=== PATIENT | female | born 1945 | race Caucasian/White ===

== ENCOUNTER 2017-09-02 06:48 | Inpatient (IN) | payer MEDICARE, BC ==
[2017-09-02] MEDS ORDERED: Naloxone 0.4 MG/ML SDV IVPUSH ONE ×4 (07:09→10:07)
--- NOTE | 2017-09-02 07:30 | EDM.PDOC ---
ED HPI GENERAL MEDICAL PROBLEM - General Chief Complaint: Behavioral/Psych Stated Complaint: TOO MUCH TO DRINK WITH MEDS Time Seen by Provider: 09/02/17 07:26 Source of Information: Reports: Patient History Limitations: Reports: No Limitations - History of Present Illness INITIAL COMMENTS - FREE TEXT/NARRATIVE: pt arrived very obtunded. She has been very depressed and she has taken some xanax and hydrocodone. A drug screen will be done. She is very sleepy. Onset: Today Duration: Hour(s): Location: Reports: Head, Chest Associated Symptoms: Reports: No Other Symptoms - Related Data Allergies Allergy/AdvReac Type Severity Reaction Status Date / Time Iodinated Contrast- Oral and Allergy Itching Verified 09/02/17 06:59 IV Dye [Iodinated Contrast Media - IV Dye] naproxen [From Aleve] Allergy Itching Verified 09/02/17 06:59 Penicillins Allergy Swelling Verified 09/02/17 06:59 Sulfa (Sulfonamide Allergy Itching Verified 09/02/17 06:59 Antibiotics) Home Meds: Home Meds ALPRAZolam [Alprazolam] 0.5 mg PO BID PRN 10/23/14 [History] Aspirin [Halfprin] 81 mg PO DAILY 10/23/14 [History] Calcium Carbonate/Vitamin D3 [Calcium 500 + Vit D 200 Caplet] 1 tab PO BID 10/23 [History] Cholecalciferol (Vitamin D3) [Vitamin D3] 1,000 units PO DAILY 10/23/14 [History ] Docusate Calcium 240 mg PO DAILY 10/23/14 [History] Famotidine [Pepcid] 20 mg PO DAILY 10/23/14 [History] Fenofibrate [Lofibra] 160 mg PO DAILY 10/23/14 [History] Hydrocodone/Acetaminophen [[place] 10-325] 1 tab PO TID PRN 10/23/14 [History] Magnesium Gluconate [Magonate] 27 mg PO DAILY 10/23/14 [History] Multivitamin with Minerals [Multiple Vitamin] 1 tab PO DAILY 10/23/14 [History] Ondansetron [Zofran] 4 mg PO Q6H PRN 10/23/14 [History] Pravastatin [Pravachol] 40 mg PO BEDTIME 10/23/14 [History] Sotalol [Betapace, Sorine] 80 mg PO BID 10/23/14 [History] Zolpidem Tartrate 10 mg PO BEDTIME PRN 10/23/14 [History] Levocetirizine Dihydrochloride [Xyzal] 5 mg PO DAILY 10/19/16 [History] Lidocaine HCl [Aspercreme] 1 applic TP TID PRN 12/21/16 [History] Albuterol [Ventolin HFA] 2 puff INH Q4H PRN 02/01/17 [History] Cyclobenzaprine [Flexeril] 10 mg PO TID PRN 04/26/17 [History] diphenhydrAMINE [Benadryl] 25 mg PO Q4H PRN 05/10/17 [History] ED ROS GENERAL - Review of Systems Review Of Systems: See Below Constitutional: Reports: No Symptoms HEENT: Reports: No Symptoms Respiratory: Reports: No Symptoms Cardiovascular: Reports: No Symptoms Endocrine: Reports: No Symptoms GI/Abdominal: Reports: No Symptoms : Reports: No Symptoms Musculoskeletal: Reports: No Symptoms Skin: Reports: No Symptoms Neurological: Reports: Other (pt is very obtunded) Hematologic/Lymphatic: Reports: No Symptoms - Physical Exam Exam: See Below Text/Narrative:: pt is very obtunded but is arousable and she does try to answer questions. She has been given another does of narcan and she is a little more arousable. Exam Limited By: No Limitations General Appearance: Alert, Other ( She is arousable but falls right back to asleep. Pupils are equal and reactive. ) Ears: Normal TMs Nose: Normal Inspection Throat/Mouth: Normal Inspection Head Exam: Atraumatic Neck: Normal Inspection Respiratory/Chest: No Respiratory Distress Cardiovascular: Regular Rate, Rhythm, Tachycardia GI/Abdominal: Soft (Female) Exam: Deferred Rectal (Female) Exam: Deferred Neuro Exam (Abbreviated): Alert, Oriented, Normal Cognition Back Exam: Normal Inspection Extremities: Normal Inspection Psychiatric: Anxious Course - Vital Signs Last Recorded V/S: Last Vital Signs Temp 36.9 C 09/02/17 07:40 Pulse 76 09/02/17 07:40 Resp 18 09/02/17 07:40 BP 194/88 H 09/02/17 07:40 Pulse Ox 100 09/02/17 07:40 - Orders/Labs/Meds Orders: Active Orders 24 hr Category Date Time Status EKG Documentation Completion [RC] ASDIRECTED Care 09/02/17 06:53 Active Mehta Catheter Insertion [Insert Urinary Catheter] [OM. Care 09/02/17 07:45 Ordered PC] Q24H Urinary Catheter Assessment [RC] ASDIRECTED Care 09/02/17 07:32 Active CULTURE URINE [RM] Stat Lab 09/02/17 08:11 Received DRUG SCREEN, URINE [URCHEM] Stat Lab 09/02/17 07:36 Ordered UA W/MICROSCOPIC [URIN] Urgent Lab 09/02/17 07:36 Ordered Levofloxacin/Dextrose 5%-Water [Levaquin in D5W 500 MG/ Med 09/02/17 08:14 Active 100 ML] 500 mg Premix Bag 1 bag IV ONETIME EKG 12 Lead [EK] Routine Ther 09/02/17 06:53 Ordered Medication Orders Levofloxacin/Dextrose 500 mg/ (Premix) 100 mls @ 100 mls/hr IV ONETIME ONE Stop: 09/02/17 09:13 Labs: Laboratory Tests 09/02/17 09/02/17 09/02/17 Range/Units 06:53 06:53 07:00 WBC 8.9 (4.5-11.0) K/uL RBC 4.06 (3.30-5.50) M/uL Hgb 13.8 (12.0-15.0) g/dL Hct 42.2 (36.0-48.0) % MCV 104 H (80-98) fL MCH 34 H (27-31) pg MCHC 33 (32-36) % Plt Count 195 (150-400) K/uL Neut % (Auto) 74 H (36-66) % Lymph % (Auto) 20 L (24-44) % [place] % (Auto) 5 (2-6) % Eos % (Auto) 1 L (2-4) % Baso % (Auto) 0 (0-1) % Sodium 136 L (140-148) mmol/L Potassium 4.1 (3.6-5.2) mmol/L Chloride 99 L (100-108) mmol/L Carbon Dioxide 28 (21-32) mmol/L Anion Gap 13.1 (5.0-14.0) mmol/L BUN 15 (7-18) mg/dL Creatinine 0.9 (0.6-1.0) mg/dL Est Cr Clr Drug Dosing 44.03 mL/min Estimated GFR (MDRD) > 60 (>60) Glucose 130 H (74-106) mg/dL Calcium 9.4 (8.5-10.1) mg/dL Total Bilirubin 0.5 (0.2-1.0) mg/dL AST 25 (15-37) U/L ALT 24 (12-78) U/L Alkaline Phosphatase 51 (46-116) U/L Total Protein 7.6 (6.4-8.2) g/dL Albumin 4.0 (3.4-5.0) g/dL Globulin 3.6 H (2.3-3.5) g/dL Albumin/Globulin Ratio 1.1 L (1.2-2.2) Urine Color Urine Appearance Urine pH (4.5-8.0) Ur Specific [place] (1.008-1.030) Urine Protein (NEGATIVE) mg/dL Urine Glucose (UA) (NEGATIVE) mg/dL Urine Ketones (NEGATIVE) mg/dL Urine Occult Blood (NEGATIVE) Urine Nitrite (NEGATIVE) Urine Bilirubin (NEGATIVE) Urine Urobilinogen (NORMAL) mg/dL Ur Leukocyte Esterase (NEGATIVE) Urine RBC (0-5) Urine WBC (0-5) Ur Epithelial Cells Amorphous Sediment Urine Bacteria Urine Mucus Salicylates 6.3 (2.0-20.0) mg/dL Urine Opiates Screen (NEGATIVE) Ur Oxycodone Screen (NEGATIVE) Urine Methadone Screen (NEGATIVE) Ur Propoxyphene Screen (NEGATIVE) Acetaminophen 0.4 L (10.0-30.0) ug/mL Ur Barbiturates Screen (NEGATIVE) Ur Tricyclics Screen (NEGATIVE) Ur Phencyclidine Scrn (NEGATIVE) Ur Amphetamine Screen (NEGATIVE) U Methamphetamines Scrn (NEGATIVE) Urine MDMA Screen (NEGATIVE) U Benzodiazepines Scrn (NEGATIVE) U Cocaine Metab Screen (NEGATIVE) U Marijuana (THC) Screen (NEGATIVE) 09/02/17 09/02/17 Range/Units 07:36 07:36 WBC (4.5-11.0) K/uL RBC (3.30-5.50) M/uL Hgb (12.0-15.0) g/dL Hct (36.0-48.0) % MCV (80-98) fL MCH (27-31) pg MCHC (32-36) % Plt Count (150-400) K/uL Neut % (Auto) (36-66) % Lymph % (Auto) (24-44) % [place] % (Auto) (2-6) % Eos % (Auto) (2-4) % Baso % (Auto) (0-1) % Sodium (140-148) mmol/L Potassium (3.6-5.2) mmol/L Chloride (100-108) mmol/L Carbon Dioxide (21-32) mmol/L Anion Gap (5.0-14.0) mmol/L BUN (7-18) mg/dL Creatinine (0.6-1.0) mg/dL Est Cr Clr Drug Dosing mL/min Estimated GFR (MDRD) (>60) Glucose (74-106) mg/dL Calcium (8.5-10.1) mg/dL Total Bilirubin (0.2-1.0) mg/dL AST (15-37) U/L ALT (12-78) U/L Alkaline Phosphatase (46-116) U/L Total Protein (6.4-8.2) g/dL Albumin (3.4-5.0) g/dL Globulin (2.3-3.5) g/dL Albumin/Globulin Ratio (1.2-2.2) Urine Color Yellow Urine Appearance Cloudy Urine pH 6.5 (4.5-8.0) Ur Specific [place] 1.005 L (1.008-1.030) Urine Protein Negative (NEGATIVE) mg/dL Urine Glucose (UA) Normal (NEGATIVE) mg/dL Urine Ketones Negative (NEGATIVE) mg/dL Urine Occult Blood Moderate (NEGATIVE) Urine Nitrite Positive H (NEGATIVE) Urine Bilirubin Negative (NEGATIVE) Urine Urobilinogen Normal (NORMAL) mg/dL Ur Leukocyte Esterase Large (NEGATIVE) Urine RBC 0-5 (0-5) Urine WBC 20-30 H (0-5) Ur Epithelial Cells Not seen Amorphous Sediment Not seen Urine Bacteria Many Urine Mucus Not seen Salicylates (2.0-20.0) mg/dL Urine Opiates Screen Presumptive positive H (NEGATIVE) Ur Oxycodone Screen Presumptive positive H (NEGATIVE) Urine Methadone Screen Negative (NEGATIVE) Ur Propoxyphene Screen Negative (NEGATIVE) Acetaminophen (10.0-30.0) ug/mL Ur Barbiturates Screen Negative (NEGATIVE) Ur Tricyclics Screen Negative (NEGATIVE) Ur Phencyclidine Scrn Negative (NEGATIVE) Ur Amphetamine Screen Negative (NEGATIVE) U Methamphetamines Scrn Negative (NEGATIVE) Urine MDMA Screen Negative (NEGATIVE) U Benzodiazepines Scrn Presumptive positive H (NEGATIVE) U Cocaine Metab Screen Negative (NEGATIVE) U Marijuana (THC) Screen Negative (NEGATIVE) Meds: Medications Generic Name Dose Route Start Last Admin Trade Name Freq PRN Reason Stop Dose Admin Levofloxacin/Dextrose 500 mg/ 100 mls @ 100 mls/hr 09/02/17 08:14 Premix IV 09/02/17 09:13 ONETIME ONE Discontinued Medications Generic Name Dose Route Start Last Admin Trade Name Freq PRN Reason Stop Dose Admin Naloxone HCl 0.4 mg 09/02/17 07:09 09/02/17 07:14 Narcan IVPUSH 09/02/17 07:10 0.4 mg ONETIME ONE Administration Naloxone HCl 0.1 mg 09/02/17 07:24 09/02/17 07:34 Narcan IVPUSH 09/02/17 07:25 0.1 mg ONETIME ONE Administration - Re-Assessments/Exams Free Text/Narrative Re-Assessment/Exam: 09/02/17 08:13 pt is positive for opiates and benzediapines. . She is more arousable after the next dose of narcan. Departure - Departure Time of Disposition: 08:24 Disposition: Home, Self-Care 01 Condition: Fair Clinical Impression: Overdose of analgesic, Depression - Discharge Information Referrals: PCP,None [Primary Care Provider] - Forms: ED Department Discharge Care Plan Goals: admit to Dr Monzon - My Orders Last 24 Hours: My Active Orders 09/02/17 07:32 Urinary Catheter Assessment [RC] ASDIRECTED 09/02/17 07:36 DRUG SCREEN, URINE [URCHEM] Stat UA W/MICROSCOPIC [URIN] Urgent 09/02/17 07:45 Mehta Catheter Insertion [Insert Urinary Catheter] [OM.PC] Q24H 09/02/17 08:11 CULTURE URINE [RM] Stat 09/02/17 08:14 Levofloxacin/Dextrose 5%-Water [Levaquin in D5W 500 MG/100 ML] 500 mg Premix Bag 1 bag IV ONETIME - Assessment/Plan Last 24 Hours: My Active Orders 09/02/17 07:32 Urinary Catheter Assessment [RC] ASDIRECTED 09/02/17 07:36 DRUG SCREEN, URINE [URCHEM] Stat UA W/MICROSCOPIC [URIN] Urgent 09/02/17 07:45 Mehta Catheter Insertion [Insert Urinary Catheter] [OM.PC] Q24H 09/02/17 08:11 CULTURE URINE [RM] Stat 09/02/17 08:14 Levofloxacin/Dextrose 5%-Water [Levaquin in D5W 500 MG/100 ML] 500 mg Premix Bag 1 bag IV ONETIME
[2017-09-02 07:31] LABS: ACETAMINOPHEN 0.4 ug/mL (10.0-30.0)
[2017-09-02] MEDS ORDERED: Levofloxacin/Dextrose 5%-Water 500 MG in Premix Bag 1 BAG IV ONE (08:14)
--- NOTE | 2017-09-02 08:59 | PCM.HP ---
H&P History of Present Illness - General Date of Service: 09/02/17 Admit Problem/Dx: Admission Diagnosis/Problem Admission Diagnosis/Problem Drug overdose Source of Information: Provider, RN Notes Reviewed History Limitations: Reports: Altered Mental Status (Decreased level of consciousness secondary to drug overdose) - History of Present Illness Initial Comments - Free Text/Narative: Ms. Alvarado is a 72-year-old woman who is admitted through the emergency department following a polydrug overdose and apparent suicide attempt. By history she is been depressed and has left some notes indicating that she was considering suicide. She was found this morning slumped at the table unresponsive with pill bottles by her. Estimated that she had taken hydrocodone as well as alprazolam, amounts unknown. In the emergency department she has received Narcan and has been more alert and interactive, able to protect her airway. She currently is being started on a continuous infusion of Narcan. Evaluation is also shown evidence of underlying urinary tract infection, urine culture has been obtained. Initial acetaminophen level is low, follow-up level has been ordered. Because of her decreased level of responsiveness she's unable to answer specific questions concerning recent symptoms or review of systems. - Related Data Allergies/Adverse Reactions: Allergies Allergy/AdvReac Type Severity Reaction Status Date / Time Iodinated Contrast- Oral and Allergy Itching Verified 09/02/17 06:59 IV Dye [Iodinated Contrast Media - IV Dye] naproxen [From Aleve] Allergy Itching Verified 09/02/17 06:59 Penicillins Allergy Swelling Verified 09/02/17 06:59 Sulfa (Sulfonamide Allergy Itching Verified 09/02/17 06:59 Antibiotics) Home Medications: Home Meds ALPRAZolam [Alprazolam] 0.5 mg PO BID PRN 10/23/14 [History] Aspirin [Halfprin] 81 mg PO DAILY 10/23/14 [History] Calcium Carbonate/Vitamin D3 [Calcium 500 + Vit D 200 Caplet] 1 tab PO BID 10/23 [History] Cholecalciferol (Vitamin D3) [Vitamin D3] 1,000 units PO DAILY 10/23/14 [History ] Docusate Calcium 240 mg PO DAILY 10/23/14 [History] Famotidine [Pepcid] 20 mg PO DAILY 10/23/14 [History] Fenofibrate [Lofibra] 160 mg PO DAILY 10/23/14 [History] Hydrocodone/Acetaminophen [[place] 10-325] 1 tab PO TID PRN 10/23/14 [History] Magnesium Gluconate [Magonate] 27 mg PO DAILY 10/23/14 [History] Multivitamin with Minerals [Multiple Vitamin] 1 tab PO DAILY 10/23/14 [History] Ondansetron [Zofran] 4 mg PO Q6H PRN 10/23/14 [History] Pravastatin [Pravachol] 40 mg PO BEDTIME 10/23/14 [History] Sotalol [Betapace, Sorine] 80 mg PO BID 10/23/14 [History] Zolpidem Tartrate 10 mg PO BEDTIME PRN 10/23/14 [History] Levocetirizine Dihydrochloride [Xyzal] 5 mg PO DAILY 10/19/16 [History] Lidocaine HCl [Aspercreme] 1 applic TP TID PRN 12/21/16 [History] Albuterol [Ventolin HFA] 2 puff INH Q4H PRN 02/01/17 [History] Cyclobenzaprine [Flexeril] 10 mg PO TID PRN 04/26/17 [History] diphenhydrAMINE [Benadryl] 25 mg PO Q4H PRN 05/10/17 [History] Past Medical History HEENT History: Reports: Impaired Vision Cardiovascular History: Reports: Arrhythmia, High Cholesterol, Hypertension Gastrointestinal History: Reports: Other (See Below) Other Gastrointestinal History: mesh removal Musculoskeletal History: Reports: Other (See Below) Other Musculoskeletal History: post polio syndrome Psychiatric History: Reports: Anxiety, Depression, Suicide Attempt - Past Surgical History GI Surgical History: Reports: Hernia, Abdominal H&P Review of Systems - Review of Systems: Review Of Systems: Unable To Obtain General: Reports: ROS unobtainable (Patient is sedated secondary to drug overdose) Exam - Exam Exam: See Below - Vital Signs Vital Signs: Last Vital Signs Temp 98.4 F 09/02/17 07:40 Pulse 76 09/02/17 07:40 Resp 18 09/02/17 07:40 BP 194/88 H 09/02/17 07:40 Pulse Ox 100 09/02/17 07:40 Weight: 180 lb - Exam Quality Assessment: Supplemental Oxygen, Urinary Catheter, DVT Prophylaxis General: Sedated, Lethargic HEENT: Conjunctiva Clear, Mucosa Moist & [place], Normal Nasal Septum, Posterior Pharynx Clear, Pupils Equal Neck: Supple, Trachea Midline, +2 Carotid Pulse wo Bruit Lungs: Clear to Auscultation, Normal Respiratory Effort Cardiovascular: Regular Rate, Regular Rhythm, Normal S1, Normal S2. No: Systolic Murmur, Diastolic Murmur GI/Abdominal Exam: Soft, Non-Tender, No Organomegaly, No Distention Extremities: Non-Tender, No Pedal Edema Skin: Warm, Dry, Intact Psychiatric: Depressed, Suicidal Ideation - Patient Data Lab Results Last 24 hrs: Laboratory Results - last 24 hr 09/02/17 09/02/17 09/02/17 Range/Units 06:53 06:53 07:00 WBC 8.9 (4.5-11.0) K/uL RBC 4.06 (3.30-5.50) M/uL Hgb 13.8 (12.0-15.0) g/dL Hct 42.2 (36.0-48.0) % MCV 104 H (80-98) fL MCH 34 H (27-31) pg MCHC 33 (32-36) % Plt Count 195 (150-400) K/uL Neut % (Auto) 74 H (36-66) % Lymph % (Auto) 20 L (24-44) % [place] % (Auto) 5 (2-6) % Eos % (Auto) 1 L (2-4) % Baso % (Auto) 0 (0-1) % Sodium 136 L (140-148) mmol/L Potassium 4.1 (3.6-5.2) mmol/L Chloride 99 L (100-108) mmol/L Carbon Dioxide 28 (21-32) mmol/L Anion Gap 13.1 (5.0-14.0) mmol/L BUN 15 (7-18) mg/dL Creatinine 0.9 (0.6-1.0) mg/dL Est Cr Clr Drug Dosing 44.03 mL/min Estimated GFR (MDRD) > 60 (>60) Glucose 130 H (74-106) mg/dL Calcium 9.4 (8.5-10.1) mg/dL Total Bilirubin 0.5 (0.2-1.0) mg/dL AST 25 (15-37) U/L ALT 24 (12-78) U/L Alkaline Phosphatase 51 (46-116) U/L Total Protein 7.6 (6.4-8.2) g/dL Albumin 4.0 (3.4-5.0) g/dL Globulin 3.6 H (2.3-3.5) g/dL Albumin/Globulin Ratio 1.1 L (1.2-2.2) Urine Color Urine Appearance Urine pH (4.5-8.0) Ur Specific [place] (1.008-1.030) Urine Protein (NEGATIVE) mg/dL Urine Glucose (UA) (NEGATIVE) mg/dL Urine Ketones (NEGATIVE) mg/dL Urine Occult Blood (NEGATIVE) Urine Nitrite (NEGATIVE) Urine Bilirubin (NEGATIVE) Urine Urobilinogen (NORMAL) mg/dL Ur Leukocyte Esterase (NEGATIVE) Urine RBC (0-5) Urine WBC (0-5) Ur Epithelial Cells Amorphous Sediment Urine Bacteria Urine Mucus Salicylates 6.3 (2.0-20.0) mg/dL Urine Opiates Screen (NEGATIVE) Ur Oxycodone Screen (NEGATIVE) Urine Methadone Screen (NEGATIVE) Ur Propoxyphene Screen (NEGATIVE) Acetaminophen 0.4 L (10.0-30.0) ug/mL Ur Barbiturates Screen (NEGATIVE) Ur Tricyclics Screen (NEGATIVE) Ur Phencyclidine Scrn (NEGATIVE) Ur Amphetamine Screen (NEGATIVE) U Methamphetamines Scrn (NEGATIVE) Urine MDMA Screen (NEGATIVE) U Benzodiazepines Scrn (NEGATIVE) U Cocaine Metab Screen (NEGATIVE) U Marijuana (THC) Screen (NEGATIVE) 09/02/17 09/02/17 Range/Units 07:36 07:36 WBC (4.5-11.0) K/uL RBC (3.30-5.50) M/uL Hgb (12.0-15.0) g/dL Hct (36.0-48.0) % MCV (80-98) fL MCH (27-31) pg MCHC (32-36) % Plt Count (150-400) K/uL Neut % (Auto) (36-66) % Lymph % (Auto) (24-44) % [place] % (Auto) (2-6) % Eos % (Auto) (2-4) % Baso % (Auto) (0-1) % Sodium (140-148) mmol/L Potassium (3.6-5.2) mmol/L Chloride (100-108) mmol/L Carbon Dioxide (21-32) mmol/L Anion Gap (5.0-14.0) mmol/L BUN (7-18) mg/dL Creatinine (0.6-1.0) mg/dL Est Cr Clr Drug Dosing mL/min Estimated GFR (MDRD) (>60) Glucose (74-106) mg/dL Calcium (8.5-10.1) mg/dL Total Bilirubin (0.2-1.0) mg/dL AST (15-37) U/L ALT (12-78) U/L Alkaline Phosphatase (46-116) U/L Total Protein (6.4-8.2) g/dL Albumin (3.4-5.0) g/dL Globulin (2.3-3.5) g/dL Albumin/Globulin Ratio (1.2-2.2) Urine Color Yellow Urine Appearance Cloudy Urine pH 6.5 (4.5-8.0) Ur Specific [place] 1.005 L (1.008-1.030) Urine Protein Negative (NEGATIVE) mg/dL Urine Glucose (UA) Normal (NEGATIVE) mg/dL Urine Ketones Negative (NEGATIVE) mg/dL Urine Occult Blood Moderate (NEGATIVE) Urine Nitrite Positive H (NEGATIVE) Urine Bilirubin Negative (NEGATIVE) Urine Urobilinogen Normal (NORMAL) mg/dL Ur Leukocyte Esterase Large (NEGATIVE) Urine RBC 0-5 (0-5) Urine WBC 20-30 H (0-5) Ur Epithelial Cells Not seen Amorphous Sediment Not seen Urine Bacteria Many Urine Mucus Not seen Salicylates (2.0-20.0) mg/dL Urine Opiates Screen Presumptive positive H (NEGATIVE) Ur Oxycodone Screen Presumptive positive H (NEGATIVE) Urine Methadone Screen Negative (NEGATIVE) Ur Propoxyphene Screen Negative (NEGATIVE) Acetaminophen (10.0-30.0) ug/mL Ur Barbiturates Screen Negative (NEGATIVE) Ur Tricyclics Screen Negative (NEGATIVE) Ur Phencyclidine Scrn Negative (NEGATIVE) Ur Amphetamine Screen Negative (NEGATIVE) U Methamphetamines Scrn Negative (NEGATIVE) Urine MDMA Screen Negative (NEGATIVE) U Benzodiazepines Scrn Presumptive positive H (NEGATIVE) U Cocaine Metab Screen Negative (NEGATIVE) U Marijuana (THC) Screen Negative (NEGATIVE) Result Diagrams: 09/02/17 07:00 09/02/17 06:53 *Q Meaningful Use (ADM) - VTE Risk Assess *Q Each Risk Factor Represents 1 Point: Obesity ( BMI > 25 kg/m2) Total Score 1 Point Risk Factors: 1 Each Risk Factor Represents 2 Points: Age 60 - 74 Years Total Score 2 Point Risk Factors: 2 Each Risk Factor Represents 3 Points: None Total Score 3 Point Risk Factors: 0 Each Risk Factor Represents 5 Points: None Total Score 5 Point Risk Factors: 0 Venous Thromboembolism Risk Factor Score *Q: 3 Problem List Initiated/Reviewed/Updated: Yes Orders Last 24hrs: Active Orders 24 hr Category Date Time Status Patient Status Manage Transfer [TRANSFER] Routine ADT 09/02/17 08:39 Active EKG Documentation Completion [RC] ASDIRECTED Care 09/02/17 06:53 Active Mehta Catheter Insertion [Insert Urinary Catheter] [OM. Care 09/02/17 07:45 Ordered PC] Q24H Urinary Catheter Assessment [RC] ASDIRECTED Care 09/02/17 07:32 Active CULTURE URINE [RM] Stat Lab 09/02/17 08:11 Received DRUG SCREEN, URINE [URCHEM] Stat Lab 09/02/17 07:36 Ordered UA W/MICROSCOPIC [URIN] Urgent Lab 09/02/17 07:36 Ordered Levofloxacin/Dextrose 5%-Water [Levaquin in D5W 500 MG/ Med 09/02/17 08:14 Active 100 ML] 500 mg Premix Bag 1 bag IV ONETIME Naloxone [Narcan] 2 mg Med 09/02/17 09:00 Active Sodium Chloride 0.9% [Normal Saline] 495 ml IV ASDIRECTED Resuscitation Status Routine Resus Stat 09/02/17 08:43 Ordered EKG 12 Lead [EK] Routine Ther 09/02/17 06:53 Ordered Medication Orders Levofloxacin/Dextrose 500 mg/ (Premix) 100 mls @ 100 mls/hr IV ONETIME ONE Stop: 09/02/17 09:13 Last Admin: 09/02/17 08:40 Dose: 100 mls/hr Naloxone HCl 2 mg/ Sodium (Chloride) 500 mls @ 51.02 mls/hr IV ASDIRECTED [facility]; Protocol Assessment/Plan Comment:: ASSESSMENT AND PLAN DRUG OVERDOSE WITH APPARENT SUICIDE ATTEMPT-she is unable to provide specific information concerning recent symptoms or intent. Apparently notes were found that indicated she was considering suicide and report is that she is been fairly depressed recently. She apparently has taken hydrocodone with Tylenol and alprazolam in apparent suicide attempt, amounts unknown. -Continuous infusion of naloxone -ICU admission -72 hour hold -Inpatient psychiatric evaluation when she is medically stable -IV fluids for hydration URINARY TRACT INFECTION-normal white blood cell count, urinalysis shows evidence of infection -Urine culture pending -Rocephin 1 g IV every 24 hours MAINTENANCE ISSUES -DVT prophylaxis; Lovenox 40 mg subcutaneous daily -GI prophylaxis; Protonix 40 mg IV every 24 hours -Mehta catheter; currently place to monitor urine output, will be removed when she has recovered from overdose -Nutrition; nothing by mouth -Nicotine dependence; not required CODE STATUS-FULL CODE ADMISSION STATUS-patient will be admitted to inpatient status, expect at least a 2 night hospital stay for evaluation and management of problems as outlined above. At the time of this admission I do not reasonably expected evaluation and management of this problem will require more than a 96 hour hospital stay. DISPOSITION-anticipate discharge to home after the hospital stay. PRIMARY CARE PROVIDER-
[2017-09-02] MEDS ORDERED: Magnesium Hydroxide 400 MG/5 ML Susp 30 ML Cup PO PRN (09:57)
[2017-09-02] MEDS ORDERED: Albuterol 0.083% 2.5 MG/3 ML Neb Soln NEB PRN (09:57)
[2017-09-02] MEDS ORDERED: Sodium Chloride 0.9% 10 ML Syringe FLUSH PRN (09:57)
[2017-09-02] MEDS ORDERED: Polyethylene Glycol 3350 Powder 17 GM Packet PO PRN (09:57)
[2017-09-02] MEDS ORDERED: Ondansetron 4 MG/2 ML SDV IV PRN (09:57)
[2017-09-02] MEDS ORDERED: cefTRIAXone 1 GM in Sodium Chloride 0.9% 50 ML IV SCH (10:00)
[2017-09-02] MEDS ORDERED: Pantoprazole 40 MG Vial IVPUSH SCH (10:00)
[2017-09-02] MEDS: Enoxaparin 40 MG/0.4 ML Syringe SUBCUT SCH (10:12)
[2017-09-02] MEDS ORDERED: Propofol 200 MG/20 ML SDV ONE (10:31)
[2017-09-02] MEDS: Sodium Chloride 0.9% 1,000 ML IV SCH ×2 (10:53→18:23)
--- NOTE | 2017-09-02 11:20 | PCM.SN ---
- Free Text/Narrative Note: Ms. Alvarado showed decreased level of responsiveness after transfer to the intensive care unit, [place] Coma Scale had been 10 in the emergency department. This dropped to 6 after transfer to the intensive care unit despite continuous infusion of Narcan and further Narcan bolus. Family reports that she also had been drinking heavily over the past few days. Because of the drop in [place] Coma Scale and unresponsiveness, she has been intubated for airway protection and respiratory support. Anticipate that we should be able to proceed with extubation later today or tomorrow morning when the sedating effects of medication overdose and alcohol have improved.
--- NOTE | 2017-09-02 11:45 | ANES ---
DATE OF SERVICE: 09/02/2017 I was called in for an emergency intubation related to a patient who had OD'd and was unable to maintain her airway. The patient was at increase for aspiration also. When I got to the bedside, at approximately 10:15, the patient was unconscious, on a Narcan drip and was not responsive, responsive to painful stimuli only. Brief rundown with the nurses on why the patient was admitted, for a drug overdose. The patient sats were fine and were 100%. Vital signs were stable. Ambu bag was ready. Intubation tray was at the bedside. I induced with 70 mg of propofol and was able to intubate with a [place] 2. Grade 1 view was noted. Cords were cleared. Cricoid pressure was held during intubation. Positive end-tidal CO2 changes were noted. Bilateral breath sounds were decreased, but noted. No gurgling or air noise over the stomach. The patient maintained 100% sats throughout the intubation. Vital signs remained stable. The ET tube was secured at 22 at the lip, per RT. The patient was then placed on a ventilator per Respiratory Therapy, and will be managed per Dr. Monzon. Cristofer Smiley CRNA /[id number]
[2017-09-02] MEDS: Pravastatin 20 MG Tab PO SCH (21:46)
[2017-09-02] MEDS: Sotalol 80 MG Tab PO SCH (21:46)
[2017-09-03] MEDS: Sodium Chloride 0.9% 1,000 ML IV SCH (02:31)
[2017-09-03] MEDS ORDERED: ALPRAZolam 0.5 MG Tab PO PRN (08:42)
[2017-09-03] MEDS ORDERED: Nicotine Polacrilex 2 MG Gum CHEW PRN (08:53)
--- NOTE | 2017-09-03 08:53 | PCM.PN ---
- General Info Date of Service: 09/03/17 Subjective Update: Ms. Alvarado has improved medically since admission yesterday, she is conversant this morning although continues to report symptoms of depression and suicidal ideation. Vital signs have remained stable and she has been afebrile. She was extubated last night when she became more alert and interactive. No evidence of respiratory compromise. She is now medically stable and ready for discharge to psychiatric facility. - Review of Systems General: Reports: No Symptoms Pulmonary: Reports: No Symptoms Cardiovascular: Reports: No Symptoms Gastrointestinal: Reports: No Symptoms Psychiatric: Reports: Depression, Suicidal Ideation - Patient Data Vitals - Most Recent: Last Vital Signs Temp 98.6 F 09/02/17 20:00 Pulse 83 09/02/17 16:00 Resp 24 H 09/03/17 06:00 BP 159/53 H 09/03/17 06:00 Pulse Ox 90 L 09/03/17 06:00 Weight - Most Recent: 165 lb 1.6 oz I&O - Last 24 Hours: Intake & Output 09/02/17 09/03/17 09/03/17 22:59 06:59 14:59 Intake Total 2176 1859 Output Total 1200 2650 Balance 976 -791 Lab Results Last 24 Hours: Laboratory Results - last 24 hr 09/02/17 09/02/17 09/03/17 Range/Units 11:07 15:22 04:36 WBC 8.6 (4.5-11.0) K/uL RBC 3.77 (3.30-5.50) M/uL Hgb 12.9 (12.0-15.0) g/dL Hct 39.4 (36.0-48.0) % MCV 105 H (80-98) fL MCH 34 H (27-31) pg MCHC 33 (32-36) % Plt Count 176 (150-400) K/uL Neut % (Auto) 69 H (36-66) % Lymph % (Auto) 20 L (24-44) % [place] % (Auto) 10 H (2-6) % Eos % (Auto) 1 L (2-4) % Baso % (Auto) 0 (0-1) % Puncture Site Lt radial ABG pH 7.392 (7.350-7.450) ABG pCO2 40.2 (35.0-42.0) mmHg ABG pO2 67.9 L (75.0-100.0) mmHg ABG HCO3 23.9 (22.0-26.0) mmol/L ABG Total CO2 21.4 (21.0-25.0) mmol/L ABG O2 Saturation 92.5 L (95.0-98.0) % ABG O2 Content 16.7 (15.0-23.0) %vol ABG Base Excess -0.4 mm/L ABG Hemoglobin 13.2 (12.0-16.0) g/dL ABG Oxyhemoglobin 89.9 % ABG Carboxyhemoglobin 2.1 H (0.0-1.6) % ABG Methemoglobin 0.7 % Gage Test Pass O2 Delivery Device Ventilator Oxygen Flow Rate L Sodium (140-148) mmol/L Potassium (3.6-5.2) mmol/L Chloride (100-108) mmol/L Carbon Dioxide (21-32) mmol/L Anion Gap (5.0-14.0) mmol/L BUN (7-18) mg/dL Creatinine (0.6-1.0) mg/dL Est Cr Clr Drug Dosing mL/min Estimated GFR (MDRD) (>60) Glucose (74-106) mg/dL Calcium (8.5-10.1) mg/dL Magnesium (1.8-2.4) mg/dL Total Bilirubin (0.2-1.0) mg/dL AST (15-37) U/L ALT (12-78) U/L Alkaline Phosphatase (46-116) U/L Total Protein (6.4-8.2) g/dL Albumin (3.4-5.0) g/dL Globulin (2.3-3.5) g/dL Albumin/Globulin Ratio (1.2-2.2) Acetaminophen 0.0 L (10.0-30.0) ug/mL 09/03/17 Range/Units 04:36 WBC (4.5-11.0) K/uL RBC (3.30-5.50) M/uL Hgb (12.0-15.0) g/dL Hct (36.0-48.0) % MCV (80-98) fL MCH (27-31) pg MCHC (32-36) % Plt Count (150-400) K/uL Neut % (Auto) (36-66) % Lymph % (Auto) (24-44) % [place] % (Auto) (2-6) % Eos % (Auto) (2-4) % Baso % (Auto) (0-1) % Puncture Site ABG pH (7.350-7.450) ABG pCO2 (35.0-42.0) mmHg ABG pO2 (75.0-100.0) mmHg ABG HCO3 (22.0-26.0) mmol/L ABG Total CO2 (21.0-25.0) mmol/L ABG O2 Saturation (95.0-98.0) % ABG O2 Content (15.0-23.0) %vol ABG Base Excess mm/L ABG Hemoglobin (12.0-16.0) g/dL ABG Oxyhemoglobin % ABG Carboxyhemoglobin (0.0-1.6) % ABG Methemoglobin % Gage Test O2 Delivery Device Oxygen Flow Rate L Sodium 142 (140-148) mmol/L Potassium 3.3 L (3.6-5.2) mmol/L Chloride 107 (100-108) mmol/L Carbon Dioxide 24 (21-32) mmol/L Anion Gap 14.3 H (5.0-14.0) mmol/L BUN 10 (7-18) mg/dL Creatinine 0.8 (0.6-1.0) mg/dL Est Cr Clr Drug Dosing 51.81 mL/min Estimated GFR (MDRD) > 60 (>60) Glucose 101 (74-106) mg/dL Calcium 8.7 (8.5-10.1) mg/dL Magnesium 1.5 L (1.8-2.4) mg/dL Total Bilirubin 0.4 (0.2-1.0) mg/dL AST 27 (15-37) U/L ALT 24 (12-78) U/L Alkaline Phosphatase 44 L (46-116) U/L Total Protein 6.5 (6.4-8.2) g/dL Albumin 3.2 L (3.4-5.0) g/dL Globulin 3.3 (2.3-3.5) g/dL Albumin/Globulin Ratio 1.0 L (1.2-2.2) Acetaminophen (10.0-30.0) ug/mL Carlos Results Last 24 Hours: Microbiology 09/02/17 08:11 Urine Culture - Preliminary Urine, Bladder Med Orders - Current: Current Medications Albuterol (Proventil Neb Soln) 2.5 mg NEB Q4H PRN PRN Reason: Shortness Of Breath/wheezing Last Admin: 09/02/17 10:58 Dose: 2.5 mg Alprazolam (Xanax) 0.5 mg PO BID PRN PRN Reason: Anxiety Aspirin (Halfprin) 81 mg PO DAILY [facility] Cefdinir (Omnicef) 300 mg PO BID [facility] Enoxaparin Sodium (Lovenox) 40 mg SUBCUT DAILY [facility] Last Admin: 09/02/17 10:12 Dose: 40 mg Escitalopram Oxalate (Lexapro) 10 mg PO DAILY [facility] Famotidine (Pepcid) 20 mg PO DAILY [facility] Fluticasone Propionate (Flonase) 0 gm NASBOTH DAILY [facility] Magnesium Sulfate 2 gm/ Premix 50 mls @ 25 mls/hr IV Q6H [facility] Stop: 09/03/17 10:59 Magnesium Hydroxide (Milk Of Magnesia) 30 ml PO Q12H PRN PRN Reason: Constipation Magnesium Oxide (Magnesium Oxide) 400 mg PO BID [facility] Non-Formulary Medication (Fenofibrate [Lofibra]) 160 mg PO DAILY [facility] Ondansetron HCl (Zofran) 4 mg IV Q4H PRN PRN Reason: Nausea/Vomiting Polyethylene Glycol (Miralax) 17 gm PO DAILY PRN PRN Reason: Constipation Potassium Chloride (Klor-Con M20) 40 meq PO ONETIME ONE Stop: 09/03/17 09:01 Pravastatin Sodium (Pravachol) 40 mg PO BEDTIME [facility] Last Admin: 09/02/17 21:46 Dose: Not Given Senna/Docusate Sodium (Senna Plus) 1 tab PO BID PRN PRN Reason: Constipation Sodium Chloride (Saline Flush) 10 ml FLUSH ASDIRECTED PRN PRN Reason: Keep Vein Open Sotalol HCl (Betapace) 80 mg PO BID [facility] Last Admin: 09/02/17 21:46 Dose: Not Given Discontinued Medications Levofloxacin/Dextrose 500 mg/ (Premix) 100 mls @ 100 mls/hr IV ONETIME ONE Stop: 09/02/17 09:13 Last Admin: 09/02/17 08:40 Dose: 100 mls/hr Naloxone HCl 2 mg/ Sodium (Chloride) 500 mls @ 51.02 mls/hr IV ASDIRECTED [facility]; Protocol Last Admin: 09/02/17 19:57 Dose: 51.02 mls/hr Ceftriaxone Sodium 1 gm/ (Sodium Chloride) 50 mls @ 100 mls/hr IV Q24H [facility] Last Admin: 09/02/17 10:33 Dose: 100 mls/hr Sodium Chloride (Normal Saline) 1,000 mls @ 125 mls/hr IV ASDIRECTED [facility] Last Admin: 09/03/17 02:31 Dose: 125 mls/hr Naloxone HCl (Narcan) 0.4 mg IVPUSH ONETIME ONE Stop: 09/02/17 07:10 Last Admin: 09/02/17 07:14 Dose: 0.4 mg Naloxone HCl (Narcan) 0.1 mg IVPUSH ONETIME ONE Stop: 09/02/17 07:25 Last Admin: 09/02/17 07:34 Dose: 0.1 mg Naloxone HCl (Narcan) 0.4 mg IVPUSH ONETIME ONE Stop: 09/02/17 08:32 Last Admin: 09/02/17 08:40 Dose: 0.4 mg Naloxone HCl (Narcan) 0.4 mg IVPUSH ONETIME ONE Stop: 09/02/17 10:08 Last Admin: 09/02/17 10:34 Dose: 0.4 mg Pantoprazole Sodium (Protonix Iv) 40 mg IVPUSH Q24H [facility] Last Admin: 09/02/17 10:30 Dose: 40 mg Propofol (Diprivan 20 Ml) Confirm Administered Dose 200 mg .ROUTE .STK-MED ONE Stop: 09/02/17 10:32 - Exam Quality Assessment: DVT Prophylaxis. No: Urine Catheter General: Alert, Oriented, No Acute Distress Lungs: Clear to Auscultation, Normal Respiratory Effort Cardiovascular: Regular Rate, Regular Rhythm, No Murmurs GI/Abdominal Exam: Soft, Non-Tender, No Organomegaly, No Distention Extremities: Non-Tender, No Pedal Edema Skin: Warm, Dry, Intact Psy/Mental Status: Depressed, Suicidal Ideation - Problem List Review Problem List Initiated/Reviewed/Updated: Yes - My Orders Last 24 Hours: My Active Orders 09/02/17 08:43 Resuscitation Status Routine 09/02/17 09:57 Patient Status [ADT] Routine Cardiac Monitoring [RC] Q6H Height and Weight [RC] DAILY Intake and Output [RC] QSHIFT Notify Provider Vital Signs [RC] ASDIRECTED Oxygen Therapy [RC] Q12H Peripheral IV Care [RC] . DIRECTED RT Aerosol Therapy [RC] ASDIRECTED Up With Assistance [RC] ASDIRECTED VTE/DVT Education [RC] Per Unit Routine Vital Signs [RC] Q4H Albuterol [Proventil Neb Soln] 2.5 mg NEB Q4H PRN Docusate Sodium/Sennosides [Senna Plus] 1 tab PO BID PRN Enoxaparin [Lovenox] 40 mg SUBCUT DAILY Magnesium Hydroxide [Milk of Magnesia] 30 ml PO Q12H PRN Ondansetron [Zofran] 4 mg IV Q4H PRN Polyethylene Glycol 3350 [MiraLAX] 17 gm PO DAILY PRN Sodium Chloride 0.9% [Saline Flush] 10 ml FLUSH ASDIRECTED PRN Peripheral IV Insertion Adult [OM.PC] Routine Suicide Precautions [OM.PC] Q109/02/17 10:12 Restraint Initiate Non-VIOL/Non-SD [OM.PC] Stat Suicide Precautions [OM.PC] Q109/02/17 10:27 Suicide Precautions [OM.PC] Q109/02/17 10:40 Chest 1V Frontal [CR] Stat 09/02/17 10:42 Suicide Precautions [OM.PC] Q1M 09/02/17 10:57 Suicide Precautions [OM.PC] Q109/02/17 11:12 Suicide Precautions [OM.PC] Q109/02/17 11:27 Suicide Precautions [OM.PC] Q109/02/17 11:42 Suicide Precautions [OM.PC] Q1M 09/02/17 11:57 Suicide Precautions [OM.PC] Q109/02/17 12:12 Suicide Precautions [OM.PC] Q109/02/17 12:27 Suicide Precautions [OM.PC] Q15M 09/02/17 12:42 Suicide Precautions [OM.PC] Q15M 09/02/17 12:57 Suicide Precautions [OM.PC] Q109/02/17 13:12 Suicide Precautions [OM.PC] Q15M 09/02/17 13:27 Suicide Precautions [OM.PC] Q15M 09/02/17 13:42 Suicide Precautions [OM.PC] Q15M 09/02/17 13:57 Suicide Precautions [OM.PC] Q15M 09/02/17 14:12 Suicide Precautions [OM.PC] Q15M 09/02/17 14:27 Suicide Precautions [OM.PC] Q15M 09/02/17 14:42 Suicide Precautions [OM.PC] Q15M 09/02/17 14:57 Suicide Precautions [OM.PC] Q15M 09/02/17 15:12 Suicide Precautions [OM.PC] Q15M 09/02/17 15:27 Suicide Precautions [OM.PC] Q15M 09/02/17 15:42 Suicide Precautions [OM.PC] Q15M 09/02/17 15:57 Suicide Precautions [OM.PC] Q15M 09/02/17 16:12 Suicide Precautions [OM.PC] Q15M 09/02/17 16:27 Suicide Precautions [OM.PC] Q15M 09/02/17 16:42 Suicide Precautions [OM.PC] Q15M 09/02/17 16:57 Suicide Precautions [OM.PC] Q15M 09/02/17 17:12 Suicide Precautions [OM.PC] Q15M 09/02/17 17:27 Suicide Precautions [OM.PC] Q15M 09/02/17 17:42 Suicide Precautions [OM.PC] Q15M 09/02/17 17:57 Suicide Precautions [OM.PC] Q15M 09/02/17 18:12 Suicide Precautions [OM.PC] Q15M 09/02/17 18:27 Suicide Precautions [OM.PC] Q15M 09/02/17 18:42 Suicide Precautions [OM.PC] Q15M 09/02/17 18:57 Suicide Precautions [OM.PC] Q15M 09/02/17 19:12 Suicide Precautions [OM.PC] Q15M 09/02/17 19:27 Suicide Precautions [OM.PC] Q15M 09/02/17 19:42 Suicide Precautions [OM.PC] Q15M 09/02/17 19:57 Suicide Precautions [OM.PC] Q15M 09/02/17 20:12 Suicide Precautions [OM.PC] Q15M 09/02/17 20:27 Suicide Precautions [OM.PC] Q15M 09/02/17 20:42 Suicide Precautions [OM.PC] Q15M 09/02/17 20:57 Suicide Precautions [OM.PC] Q15M 09/02/17 21:00 Pravastatin [Pravachol] 40 mg PO BEDTIME Sotalol [Betapace] 80 mg PO BID 09/02/17 21:12 Suicide Precautions [OM.PC] Q15M 09/02/17 21:27 Suicide Precautions [OM.PC] Q15M 09/02/17 21:42 Suicide Precautions [OM.PC] Q15M 09/02/17 21:57 Suicide Precautions [OM.PC] Q15M 09/02/17 22:12 Suicide Precautions [OM.PC] Q15M 09/02/17 22:27 Suicide Precautions [OM.PC] Q15M 09/02/17 22:42 Suicide Precautions [OM.PC] Q15M 09/02/17 22:57 Suicide Precautions [OM.PC] Q15M 09/02/17 23:12 Suicide Precautions [OM.PC] Q15M 09/02/17 23:27 Suicide Precautions [OM.PC] Q15M 09/02/17 23:42 Suicide Precautions [OM.PC] Q15M 09/02/17 23:57 Suicide Precautions [OM.PC] Q15M 09/03/17 00:12 Suicide Precautions [OM.PC] Q15M 09/03/17 00:27 Suicide Precautions [OM.PC] Q15M 09/03/17 08:42 ALPRAZolam [Xanax] 0.5 mg PO BID PRN 09/03/17 08:44 Remove Mehta Catheter [Urinary Catheter Removal] [RC] Per Unit Routine Convert IV to Saline Lock [OM.PC] Routine 09/03/17 09:00 Aspirin [Halfprin] 81 mg PO DAILY Cefdinir [Omnicef] 300 mg PO BID Escitalopram [Lexapro] 10 mg PO DAILY Famotidine [Pepcid] 20 mg PO DAILY Fenofibrate [Lofibra] 160 mg PO DAILY Fluticasone Propionate [Flonase] 0 gm NASBOTH DAILY Magnesium Oxide 400 mg PO BID Magnesium Sulfate/Water [Magnesium Sulfate 2 GM in Water 50 ML] 2 gm Premix Bag 1 bag IV Q6H Potassium Chloride [Klor-Con M20] 40 meq PO ONETIME ONE 09/03/17 Breakfast Regular Diet [DIET] - Plan Plan:: ASSESSMENT AND PLAN DRUG OVERDOSE WITH APPARENT SUICIDE ATTEMPT-she has recovered from the effects of drug overdose and was extubated last night. She is alert and interactive today but does continue to report symptoms of depression and suicidal ideation. -72 hour hold -She is now medically stable and ready for transfer to psychiatric facility for further evaluation and management -Saline lock IV URINARY TRACT white blood cell count remains normal and she has had no significant temperature elevation -Urine culture pending -Discontinue IV Rocephin -Omnicef 300 mg by mouth twice a day MAINTENANCE ISSUES -DVT prophylaxis; Lovenox 40 mg subcutaneous daily -GI prophylaxis; resume oral H2 polo therapy -Mehta catheter; removed -Nutrition; regular diet -Nicotine dependence; nicotine patch and nicotine gum as needed CODE STATUS-FULL CODE ADMISSION STATUS-patient will be admitted to inpatient status, expect at least a 2 night hospital stay for evaluation and management of problems as outlined above. At the time of this admission I do not reasonably expected evaluation and management of this problem will require more than a 96 hour hospital stay. DISPOSITION-[facility] PRIMARY CARE PROVIDER-
[2017-09-03] MEDS ORDERED: Potassium Chloride 20 MEQ Tab.ER PO ONE (09:00)
[2017-09-03] MEDS ORDERED: Magnesium Sulfate/Water 2 GM in Premix Bag 1 BAG IV SCH (09:00)
[2017-09-03] MEDS: Nicotine 21 MG/24 Hr Patch TRDERM SCH (09:45)
[2017-09-03] MEDS: Escitalopram 10 MG Tab PO SCH (09:50)
[2017-09-03] MEDS: Aspirin 81 MG Tab.EC PO SCH (09:50)
[2017-09-03] MEDS: Sotalol 80 MG Tab PO SCH ×2 (09:53→20:28)
[2017-09-03] MEDS: Fenofibrate,Micronized 67 MG Cap PO SCH (09:58)
[2017-09-03] MEDS: Cefdinir 300 MG Cap PO SCH ×2 (09:58→20:28)
[2017-09-03] MEDS: Famotidine 20 MG Tab PO SCH (09:59)
[2017-09-03] MEDS: Magnesium Oxide 400 MG Tab PO SCH ×2 (10:00→20:28)
[2017-09-03] MEDS: Enoxaparin 40 MG/0.4 ML Syringe SUBCUT SCH (10:15)
[2017-09-03] MEDS: Fluticasone Propionate Nasal Spray 16 GM Bottle NASBOTH SCH (10:45)
--- NOTE | 2017-09-03 13:33 | PCM.DCSUM1 ---
Discharge Summary - Hospital Course Brief History: Ms. Alvarado is a 72-year-old woman who was admitted through the emergency department following a drug overdose in an apparent suicide attempt. - Discharge Data Discharge Date: 09/03/17 Discharge Disposition: DC/Tfer to Psych Hosp/Unit 65 Condition: Poor - Discharge Diagnosis/Problem(s) (1) Drug overdose, intentional SNOMED Code(s): 18158084 ICD Code: T50.902A - POISONING BY UNSP DRUG/MEDS/BIOL SUBST, SELF-HARM, INIT Status: Acute Current Visit: Yes (2) Suicide attempt by drug ingestion SNOMED Code(s): 26141440, 98926748 ICD Code: T50.902A - POISONING BY UNSP DRUG/MEDS/BIOL SUBST, SELF-HARM, INIT Status: Acute Current Visit: Yes (3) UTI (urinary tract infection) SNOMED Code(s): 52104106 ICD Code: N39.0 - URINARY TRACT INFECTION, SITE NOT SPECIFIED Status: Acute Current Visit: Yes (4) Depression SNOMED Code(s): 31815697 ICD Code: F32.9 - MAJOR DEPRESSIVE DISORDER, SINGLE EPISODE, UNSPECIFIED Status: Acute Current Visit: Yes Qualifiers: Depression Type: major depressive disorder - Patient Summary/Data Hospital Course: Ms. Alvarado is a 72-year-old woman who was admitted through the emergency department following a polydrug overdose and apparent suicide attempt. By history she has been depressed and had left some notes indicating that she was considering suicide. She was found this morning slumped at the table unresponsive with pill bottles by her. Estimated that she had taken hydrocodone as well as alprazolam, amounts unknown, also reported that she consumed a large amount of alcohol. In the emergency department she has received Narcan and has been more alert and interactive, able to protect her airway. She currently is being started on a continuous infusion of Narcan. Evaluation has also shown evidence of underlying urinary tract infection, urine culture has been obtained. Initial acetaminophen level is low, follow-up level has been ordered. Because of her decreased level of responsiveness she's unable to answer specific questions concerning recent symptoms or review of systems. On admission she was given IV fluids for hydration and placed on a 72 hour hold because of the apparent suicide attempt. After arrival in the intensive care unit her level of consciousness decreased despite ongoing use of continuous infusion of Narcan and repeat Narcan bolus. At that time her Glascow coma scale was calculated at 6 and it was felt that we needed to proceed with intubation, for airway protection. She was intubated by the anesthesia service and placed on mechanical ventilation. She was also started on IV Rocephin for management of urinary tract infection. Continuous Narcan infusion was discontinued mid evening, late evening she became more alert and in interactive and was extubated. All in morning she was able to sit up and eat a small amount of breakfast as well as take in liquids. She is reported to nursing staff ongoing suicidal ideation. Oral antibiotic therapy was initiated for urinary tract infection on the morning of discharge with Omnicef 300 mg by mouth twice a day, this will be continued for 4 days after transfer to inpatient psychiatric facility. Magnesium and potassium levels were low on the morning of transfer and were replaced orally and intravenously prior to transfer. She is medically stable at this time and can be transferred to an inpatient psychiatric facility. She will be safely transported to [facility] in [facility] for further evaluation and management of her depression as well as suicidal ideation. She is been accepted in transfer by the nurse practitioner national sales trainer at that facility. - Patient Instructions Diet: Usual Diet as Tolerated Activity: As Tolerated Other/Special Instructions: Patient will be transferred to inpatient psychiatric facility on a 72 hour hold for further evaluation and management of depression with a suicide attempt by drug overdose and ongoing suicidal ideation. - Discharge Plan *PRESCRIPTION DRUG MONITORING PROGRAM REVIEWED*: Not Applicable *COPY OF PRESCRIPTION DRUG MONITORING REPORT IN PATIENT ZUHAIR: Not Applicable Prescriptions/Med Rec: Cefdinir [Omnicef] 300 mg PO BID #8 cap Home Medications: Home Meds ALPRAZolam [Alprazolam] 0.5 mg PO BID PRN 10/23/14 [History] Aspirin [Halfprin] 81 mg PO DAILY 10/23/14 [History] Calcium Carbonate/Vitamin D3 [Calcium 500-Vit D3 200 Caplet] 1 tab PO BID [History] Cholecalciferol (Vitamin D3) [Vitamin D3] 1,000 units PO DAILY 10/23/14 [History ] Docusate Calcium 240 mg PO DAILY 10/23/14 [History] Famotidine [Pepcid] 20 mg PO DAILY 10/23/14 [History] Fenofibrate [Lofibra] 160 mg PO DAILY 10/23/14 [History] Hydrocodone/Acetaminophen [[place] 10-325] 1 tab PO TID PRN 10/23/14 [History] Magnesium Gluconate [Magonate] 27 mg PO DAILY 10/23/14 [History] Multivitamin with Minerals [Multiple Vitamin] 1 tab PO DAILY 10/23/14 [History] Ondansetron [Zofran] 4 mg PO Q6H PRN 10/23/14 [History] Pravastatin [Pravachol] 40 mg PO BEDTIME 10/23/14 [History] Sotalol [Betapace] 80 mg PO BID 10/23/14 [History] Lidocaine HCl [Aspercreme] 1 applic TP TID PRN 12/21/16 [History] Albuterol [Ventolin HFA] 2 puff INH Q4H PRN 02/01/17 [History] diphenhydrAMINE [Benadryl] 25 mg PO Q4H PRN 05/10/17 [History] Ammonium Lactate [Skin Treatment] 1 tube TOP BID 09/02/17 [History] Escitalopram [Lexapro] 10 mg PO DAILY 09/02/17 [History] Famotidine [Pepcid] 20 mg PO DAILY 09/02/17 [History] Fluticasone Propionate [Flonase] 50 mcg INH DAILY 09/02/17 [History] Cefdinir [Omnicef] 300 mg PO BID #8 cap 09/03/17 [Rx] Nicotine Polacrilex [Nicorelief] 4 mg CHEW Q1H PRN gum 09/03/17 [Rx] Nicotine [Habitrol] 21 mg TRDERM DAILY patch 09/03/17 [Rx] Referrals: PCP,None [Primary Care Provider] - - Discharge Summary/Plan Comment DC Time >30 min.: No - Patient Data Vitals - Most Recent: Last Vital Signs Temp 99.1 F 09/03/17 11:39 Pulse 72 09/03/17 11:39 Resp 18 09/03/17 11:39 BP 176/70 H 09/03/17 11:39 Pulse Ox 97 09/03/17 11:39 Weight - Most Recent: 159 lb 6.307 oz I&O - Last 24 hours: Intake & Output 09/02/17 09/03/17 09/03/17 22:59 06:59 14:59 Intake Total 2176 1859 Output Total 1200 2650 Balance 976 -791 Lab Results - Last 24 hrs: Laboratory Results - last 24 hr 09/02/17 09/03/17 09/03/17 Range/Units 15:22 04:36 04:36 WBC 8.6 (4.5-11.0) K/uL RBC 3.77 (3.30-5.50) M/uL Hgb 12.9 (12.0-15.0) g/dL Hct 39.4 (36.0-48.0) % MCV 105 H (80-98) fL MCH 34 H (27-31) pg MCHC 33 (32-36) % Plt Count 176 (150-400) K/uL Neut % (Auto) 69 H (36-66) % Lymph % (Auto) 20 L (24-44) % Kinney % (Auto) 10 H (2-6) % Eos % (Auto) 1 L (2-4) % Baso % (Auto) 0 (0-1) % Sodium 142 (140-148) mmol/L Potassium 3.3 L (3.6-5.2) mmol/L Chloride 107 (100-108) mmol/L Carbon Dioxide 24 (21-32) mmol/L Anion Gap 14.3 H (5.0-14.0) mmol/L BUN 10 (7-18) mg/dL Creatinine 0.8 (0.6-1.0) mg/dL Est Cr Clr Drug Dosing 51.81 mL/min Estimated GFR (MDRD) > 60 (>60) Glucose 101 (74-106) mg/dL Calcium 8.7 (8.5-10.1) mg/dL Magnesium 1.5 L (1.8-2.4) mg/dL Total Bilirubin 0.4 (0.2-1.0) mg/dL AST 27 (15-37) U/L ALT 24 (12-78) U/L Alkaline Phosphatase 44 L (46-116) U/L Total Protein 6.5 (6.4-8.2) g/dL Albumin 3.2 L (3.4-5.0) g/dL Globulin 3.3 (2.3-3.5) g/dL Albumin/Globulin Ratio 1.0 L (1.2-2.2) TSH, Ultra Sensitive (0.358-3.740) uIU/mL Acetaminophen 0.0 L (10.0-30.0) ug/mL 09/03/17 Range/Units 09:51 WBC (4.5-11.0) K/uL RBC (3.30-5.50) M/uL Hgb (12.0-15.0) g/dL Hct (36.0-48.0) % MCV (80-98) fL MCH (27-31) pg MCHC (32-36) % Plt Count (150-400) K/uL Neut % (Auto) (36-66) % Lymph % (Auto) (24-44) % Kinney % (Auto) (2-6) % Eos % (Auto) (2-4) % Baso % (Auto) (0-1) % Sodium (140-148) mmol/L Potassium (3.6-5.2) mmol/L Chloride (100-108) mmol/L Carbon Dioxide (21-32) mmol/L Anion Gap (5.0-14.0) mmol/L BUN (7-18) mg/dL Creatinine (0.6-1.0) mg/dL Est Cr Clr Drug Dosing mL/min Estimated GFR (MDRD) (>60) Glucose (74-106) mg/dL Calcium (8.5-10.1) mg/dL Magnesium (1.8-2.4) mg/dL Total Bilirubin (0.2-1.0) mg/dL AST (15-37) U/L ALT (12-78) U/L Alkaline Phosphatase (46-116) U/L Total Protein (6.4-8.2) g/dL Albumin (3.4-5.0) g/dL Globulin (2.3-3.5) g/dL Albumin/Globulin Ratio (1.2-2.2) TSH, Ultra Sensitive 0.490 (0.358-3.740) uIU/mL Acetaminophen (10.0-30.0) ug/mL ELAINE Results - Last 24 hrs: Microbiology 09/02/17 08:11 Urine Culture - Preliminary Urine, Bladder Med Orders - Current: Current Medications Albuterol (Proventil Neb Soln) 2.5 mg NEB Q4H PRN PRN Reason: Shortness Of Breath/wheezing Last Admin: 09/02/17 10:58 Dose: 2.5 mg Alprazolam (Xanax) 0.5 mg PO BID PRN PRN Reason: Anxiety Last Admin: 09/03/17 12:13 Dose: 0.5 mg Aspirin (Halfprin) 81 mg PO DAILY [facility] Last Admin: 09/03/17 09:50 Dose: 81 mg Cefdinir (Omnicef) 300 mg PO BID [facility] Last Admin: 09/03/17 09:58 Dose: 300 mg Enoxaparin Sodium (Lovenox) 40 mg SUBCUT DAILY [facility] Last Admin: 09/03/17 10:15 Dose: 40 mg Escitalopram Oxalate (Lexapro) 10 mg PO DAILY [facility] Last Admin: 09/03/17 09:50 Dose: 10 mg Famotidine (Pepcid) 20 mg PO DAILY [facility] Last Admin: 09/03/17 09:59 Dose: 20 mg Fenofibrate (Fenofibrate) 134 mg PO DAILY [facility] Last Admin: 09/03/17 09:58 Dose: 134 mg Fluticasone Propionate (Flonase) 0 gm NASBOTH DAILY [facility] Last Admin: 09/03/17 10:45 Dose: 2 spray Magnesium Hydroxide (Milk Of Magnesia) 30 ml PO Q12H PRN PRN Reason: Constipation Magnesium Oxide (Magnesium Oxide) 400 mg PO BID [facility] Last Admin: 09/03/17 10:00 Dose: 400 mg Nicotine (Habitrol) 21 mg TRDERM DAILY [facility] Last Admin: 09/03/17 09:45 Dose: Not Given Nicotine Polacrilex (Nicorelief) 4 mg CHEW Q1H PRN PRN Reason: Other Ondansetron HCl (Zofran) 4 mg IV Q4H PRN PRN Reason: Nausea/Vomiting Polyethylene Glycol (Miralax) 17 gm PO DAILY PRN PRN Reason: Constipation Pravastatin Sodium (Pravachol) 40 mg PO BEDTIME [facility] Last Admin: 09/02/17 21:46 Dose: Not Given Senna/Docusate Sodium (Senna Plus) 1 tab PO BID PRN PRN Reason: Constipation Sodium Chloride (Saline Flush) 10 ml FLUSH ASDIRECTED PRN PRN Reason: Keep Vein Open Sotalol HCl (Betapace) 80 mg PO BID [facility] Last Admin: 09/03/17 09:53 Dose: 80 mg Discontinued Medications Levofloxacin/Dextrose 500 mg/ (Premix) 100 mls @ 100 mls/hr IV ONETIME ONE Stop: 09/02/17 09:13 Last Admin: 09/02/17 08:40 Dose: 100 mls/hr Naloxone HCl 2 mg/ Sodium (Chloride) 500 mls @ 51.02 mls/hr IV ASDIRECTED [facility]; Protocol Last Admin: 09/02/17 19:57 Dose: 51.02 mls/hr Ceftriaxone Sodium 1 gm/ (Sodium Chloride) 50 mls @ 100 mls/hr IV Q24H [facility] Last Admin: 09/02/17 10:33 Dose: 100 mls/hr Sodium Chloride (Normal Saline) 1,000 mls @ 125 mls/hr IV ASDIRECTED [facility] Last Admin: 09/03/17 02:31 Dose: 125 mls/hr Magnesium Sulfate 2 gm/ Premix 50 mls @ 25 mls/hr IV Q6H [facility] Stop: 09/03/17 10:59 Last Admin: 09/03/17 10:16 Dose: 25 mls/hr Naloxone HCl (Narcan) 0.4 mg IVPUSH ONETIME ONE Stop: 09/02/17 07:10 Last Admin: 09/02/17 07:14 Dose: 0.4 mg Naloxone HCl (Narcan) 0.1 mg IVPUSH ONETIME ONE Stop: 09/02/17 07:25 Last Admin: 09/02/17 07:34 Dose: 0.1 mg Naloxone HCl (Narcan) 0.4 mg IVPUSH ONETIME ONE Stop: 09/02/17 08:32 Last Admin: 09/02/17 08:40 Dose: 0.4 mg Naloxone HCl (Narcan) 0.4 mg IVPUSH ONETIME ONE Stop: 09/02/17 10:08 Last Admin: 09/02/17 10:34 Dose: 0.4 mg Pantoprazole Sodium (Protonix Iv) 40 mg IVPUSH Q24H [facility] Last Admin: 09/02/17 10:30 Dose: 40 mg Potassium Chloride (Klor-Con M20) 40 meq PO ONETIME ONE Stop: 09/03/17 09:01 Last Admin: 09/03/17 09:51 Dose: 40 meq Propofol (Diprivan 20 Ml) Confirm Administered Dose 200 mg .ROUTE .STK-MED ONE Stop: 09/02/17 10:32 - Exam General: Reports: Alert, Oriented, No Acute Distress Lungs: Reports: Clear to Auscultation, Normal Respiratory Effort Cardiovascular: Reports: Regular Rate, Regular Rhythm, No Murmurs GI/Abdominal Exam: Soft, Non-Tender, No Organomegaly, No Distention Extremities: Non-Tender, No Pedal Edema
[2017-09-03] MEDS: Pravastatin 20 MG Tab PO SCH (20:28)
--- NOTE | 2017-09-04 09:03 | PCM.SN ---
- Free Text/Narrative Note: Catina did not have any acute issues overnight. Her strength has improved and she now requires only standby assistance. She is getting around with her walker. She is able to feed herself. She is able to get into and out of bed on her own. She continues to be very depressed. She was elusive this morning when asked if she was still feeling suicidal and change the subject. She remains very depressed and would benefit from inpatient psychiatric management. She is strong enough to be independent and now is safe for transfer. Tremayne Jackman MD
--- NOTE | 2017-09-04 09:03 | CR ---
CHEST: Portable CLINICAL HISTORY:Post intubation COMPARISON:None FINDINGS: Patient has an endotracheal tube in the distal trachea approximately 3 cm from the yfn. Heart size is normal. Pulmonary vascular is mildly cephalized. There is mild prominence in interstit ial markings. There are atherosclerotic changes in the aorta. IMPRESSION: Endotracheal intubation Mild pulmonary vascular cephalization. Mild interstitial prominence. This may represent some pulmonar y venous hypertension
[2017-09-04] MEDS: Famotidine 20 MG Tab PO SCH (09:23)
[2017-09-04] MEDS: Fenofibrate,Micronized 67 MG Cap PO SCH (09:23)
[2017-09-04] MEDS: Escitalopram 10 MG Tab PO SCH (09:23)
[2017-09-04] MEDS: Magnesium Oxide 400 MG Tab PO SCH (09:23)
[2017-09-04] MEDS: Sotalol 80 MG Tab PO SCH (09:23)
[2017-09-04] MEDS: Fluticasone Propionate Nasal Spray 16 GM Bottle NASBOTH SCH (09:24)
[2017-09-04] MEDS: Enoxaparin 40 MG/0.4 ML Syringe SUBCUT SCH (09:24)
[2017-09-04] MEDS: Nicotine 21 MG/24 Hr Patch TRDERM SCH (09:24)
[2017-09-04] MEDS: Cefdinir 300 MG Cap PO SCH (09:24)
[2017-09-04] MEDS: Aspirin 81 MG Tab.EC PO SCH (09:25)
[2017-09-04 11:04] VITALS: BP 165/52
== END 2017-09-04 13:00 | DRG 918 ==
LOC: JP.ED 06:48 → JP.ICU 08:39
PROVIDERS: ADMIT Hospitalist; ATTEND Internal Medicine
PROC: 0BH17EZ Insertion of Endotracheal Airway into Trachea, Via Natural or Artificial Opening (ICD-10-PCS; principal; 2017-09-02)
PROC: 5A1935Z Respiratory Ventilation, Less than 24 Consecutive Hours (ICD-10-PCS; 2017-09-02)
DX: T40.2X1A Poisoning by other opioids, accidental (unintentional), initial encounter (principal); T42.4X1A Poisoning by benzodiazepines, accidental (unintentional), initial encounter; Y92.9 Unspecified place or not applicable; T40.2X2A Poisoning by other opioids, intentional self-harm, initial encounter; N39.0 Urinary tract infection, site not specified; T42.4X2A Poisoning by benzodiazepines, intentional self-harm, initial encounter; Y92.011 Dining room of single-family (private) house as the place of occurrence of the external cause; F32.9 Major depressive disorder, single episode, unspecified; I49.9 Cardiac arrhythmia, unspecified; E78.00 Pure hypercholesterolemia, unspecified; I10 Essential (primary) hypertension; Z79.899 Other long term (current) drug therapy; Z91.041 Radiographic dye allergy status; Z88.0 Allergy status to penicillin; Z88.2 Allergy status to sulfonamides; Z88.8 Allergy status to other drugs, medicaments and biological substances; Z79.82 Long term (current) use of aspirin
CPT/HCPCS: 36415; 51702; 80053; 80305; 81001; 85025; 87086; 87088; 87186; 93005; 96374; 99285; G0480 ×2; J2310 ×2; 36600; 71045; 71045-26; 82803; 83735; 84443; 94002; 94640; A9270-GY; C9113; J0696; J1650; J1956; J2704; J3475; J7030; J7040; J7050

== ENCOUNTER 2018-05-23 13:57 | Outpatient (CLI) | payer MEDICARE, BC ==
[2018-05-23] MEDS ORDERED: Bupivacaine 0.5% 30 ML SDV ONE (14:30)
[2018-05-23] MEDS ORDERED: Triamcinolone Acetonide 40 MG/ML 1 ML MDV ONE (14:41)
[2018-05-23 14:53] VITALS: BP 166/70; PULSE 61
--- NOTE | 2018-05-23 21:07 | ANES ---
DATE OF SERVICE: 05/23/2018 INDICATIONS: Catina is a 72-year-old female patient of Dr. Atilio Shen. She is here today with low back pain. Please refer to Dr. Shen's note for diagnosis. She is here today for lumbar triggers as well as lower posterior thorax triggers. TECHNIQUE: I located 10 posterior thorax and 12 lumbar, each were swabbed with alcohol and injected with approximately 1 to 2 mL of 0.5% Sensorcaine. A total of 30 mL were used today. More than 3 muscle groups were injected for sure. I split 40 mg of Kenalog between all the sites as well. She tolerated the procedure quite well. Please refer to nurse's notes for vital signs and neuro status, which were unchanged and within normal limits. I discussed with her return in 2 weeks, she was agreeable, and after the appropriate amount of observation, she was discharged per [facility] protocol. Yousif Thompson CRNA /[id number]
== END 2018-05-23 14:53 | disposition home or self-care (01) ==
LOC: JP.PAIN 13:57
PROVIDERS: ATTEND Internal Medicine
DX: M60.9 Myositis, unspecified (principal)
CPT/HCPCS: 20553; J3301; J3490

== ENCOUNTER 2018-07-04 11:33 | Outpatient (CLI) | payer MEDICARE, BC ==
[2018-07-04] MEDS ORDERED: Bupivacaine 0.5% 30 ML SDV ONE (11:45)
[2018-07-04 12:11] VITALS: BP 166/82; PULSE 64
--- NOTE | 2018-07-04 18:42 | ANES ---
DATE OF SERVICE: 07/04/2018 INDICATION: Mrs. Alvarado is a 72-year-old female patient, referred to the [facility] to us by Dr. Shen. She is here today for trigger points. Please see the orders for the patient's preprocedure diagnosis as well as ICD-10 code. The risks and benefits of the procedure were explained to the patient. She wished to proceed with trigger point injections. TECHNIQUE: I did find 22 noticeable thoracic, lumbar and sacral trigger points. I injected each of these with 1 to 2 mL of 0.5% Sensorcaine. I did inject more than 3 muscle groups. She tolerated the procedure very nicely. Her vital signs remained stable throughout the procedure and nurse was with me for the entire procedure. There were no anesthesia complications noted. She is going to return in 2 weeks for trigger point injections. She was discharged from the Vascular Physician Unit per protocol. Angel Sosa CRNA /[id number]
== END 2018-07-04 12:25 | disposition home or self-care (01) ==
LOC: JP.PAIN 11:33
PROVIDERS: ATTEND Internal Medicine
DX: G14 Postpolio syndrome (principal); M79.10 Myalgia, unspecified site
CPT/HCPCS: 20553; J3490

== ENCOUNTER 2021-05-01 11:57 | Emergency (ER) | payer MEDICARE, BC ==
[2021-05-01] MEDS ORDERED: Sodium Chloride 0.9% 10 ML Syringe FLUSH PRN (11:58)
[2021-05-01] MEDS ORDERED: Sodium Chloride 0.9% 500 ML IV ONE (11:58)
[2021-05-01] MEDS ORDERED: Morphine 2 MG/ML SYRINGE IVPUSH ONE (11:58)
[2021-05-01] MEDS ORDERED: Levalbuterol HCl 1.25 MG/3 ML Neb NEB ONE (12:01)
[2021-05-01 13:14] LABS: CORONAVIRUS COVID-19 NAA NEGATIVE (NEGATIVE)
[2021-05-01] MEDS ORDERED: LORazepam 2 MG/ML SDV IVPUSH ONE (13:24)
[2021-05-01] MEDS ORDERED: diphenhydrAMINE 50 MG/ML SDV IVPUSH ONE (13:42)
[2021-05-01] MEDS ORDERED: Iopamidol 755 Mg/ML 100 ML Bottle IV SCH (13:45)
[2021-05-01] MEDS ORDERED: Sodium Chloride 0.9% 75 ML IV SCH (13:45)
[2021-05-01] MEDS ORDERED: Furosemide 40 MG/4 ML VIAL IVPUSH ONE (15:00)
[2021-05-01 15:36] VITALS: BP 110/67; PULSE 94
[2021-05-01] MEDS ORDERED: Heparin Sodium 5,000 Units/ML Vial IVPUSH ONE (16:11)
[2021-05-01] MEDS ORDERED: Aspirin 81 MG Tab.Chew PO ONE (16:11)
[2021-05-01] MEDS ORDERED: Heparin Sodium/D5W 25,000 UNITS/500 ML BAG IV SCH (16:15)
== END 2021-05-01 17:36 ==
LOC: JP.ED 11:57
DX: I21.4 Non-ST elevation (NSTEMI) myocardial infarction (principal); E78.00 Pure hypercholesterolemia, unspecified; I10 Essential (primary) hypertension; Z88.2 Allergy status to sulfonamides; Z88.0 Allergy status to penicillin; Z88.5 Allergy status to narcotic agent; Z91.041 Radiographic dye allergy status; Z20.822 Contact with and (suspected) exposure to COVID-19
CPT/HCPCS: 0241U; 36415; 36600; 71045; 71045-26; 71275; 80053; 80143; 80179; 80307; 81001; 82803; 83605; 83735; 83880; 84145; 84484; 85025; 85379; 85610; 85730; 86140; 87040; 93005; 93010; 94640; 96374; 96375; 96376; 99284; 99285-25; A9270-GY; J1200; J1644; J1940; J2060; J2270; J7040; J7612-GY; Q9967

== ENCOUNTER 2022-04-03 01:24 | Emergency (ER) | payer MEDICARE, BC ==
[2022-04-03 01:40] VITALS: BP 150/75; PULSE 114
[2022-04-03] MEDS ORDERED: Sodium Chloride 0.9% 1,000 ML IV SCH (01:45)
[2022-04-03 02:02] LABS: ESTIMATED GFR 58 mL/min (>60)
[2022-04-03 02:15] LABS: CORONAVIRUS COVID-19 NAA NEGATIVE (NEGATIVE)
== END 2022-04-03 05:10 | disposition home or self-care (01) ==
LOC: JP.ED 01:24
DX: J10.1 Influenza due to other identified influenza virus with other respiratory manifestations (principal); E78.00 Pure hypercholesterolemia, unspecified; I10 Essential (primary) hypertension; Z88.8 Allergy status to other drugs, medicaments and biological substances; Z91.041 Radiographic dye allergy status; Z88.1 Allergy status to other antibiotic agents; Z88.0 Allergy status to penicillin; Z88.2 Allergy status to sulfonamides; Z79.899 Other long term (current) drug therapy; Z20.822 Contact with and (suspected) exposure to COVID-19
CPT/HCPCS: 0241U; 36415; 80053; 83605; 83690; 84145; 85025; 86140; 96360; 96361; 99284; J7030

== ENCOUNTER 2022-04-08 12:15 | Emergency (ER) | payer MEDICARE, BC ==
[2022-04-08 12:36] VITALS: BP 142/55; PULSE 80
[2022-04-08 13:38] LABS: ESTIMATED GFR 76 mL/min (>60)
== END 2022-04-08 14:15 | disposition home or self-care (01) ==
LOC: JP.ED 12:15
DX: J10.00 Influenza due to other identified influenza virus with unspecified type of pneumonia (principal); J44.9 Chronic obstructive pulmonary disease, unspecified; N30.01 Acute cystitis with hematuria; I48.91 Unspecified atrial fibrillation; I25.10 Atherosclerotic heart disease of native coronary artery without angina pectoris; K21.9 Gastro-esophageal reflux disease without esophagitis; E78.00 Pure hypercholesterolemia, unspecified; I10 Essential (primary) hypertension; F17.210 Nicotine dependence, cigarettes, uncomplicated; Z88.8 Allergy status to other drugs, medicaments and biological substances; Z91.041 Radiographic dye allergy status; Z88.0 Allergy status to penicillin; Z88.2 Allergy status to sulfonamides; Z79.01 Long term (current) use of anticoagulants; Z79.899 Other long term (current) drug therapy
CPT/HCPCS: 36415; 71046; 71046-26; 80053; 81001; 84145; 85025; 86140; 87086; 87088; 87186; 99285

== ENCOUNTER 2022-06-04 18:48 | Emergency (ER) | payer MEDICARE, BC ==
[2022-06-04 19:02] VITALS: BP 156/54; PULSE 74
[2022-06-04] MEDS ORDERED: Bacitracin Oint 1 GM U/D Packet TOP ONE (19:31)
== END 2022-06-04 20:39 | disposition home or self-care (01) ==
LOC: JP.ED 18:48
DX: S81.012A Laceration without foreign body, left knee, initial encounter (principal); S93.491A Sprain of other ligament of right ankle, initial encounter; E78.00 Pure hypercholesterolemia, unspecified; I10 Essential (primary) hypertension; Z72.0 Tobacco use; Z91.041 Radiographic dye allergy status; Z88.6 Allergy status to analgesic agent; Z88.8 Allergy status to other drugs, medicaments and biological substances; Z88.1 Allergy status to other antibiotic agents; Z88.0 Allergy status to penicillin; Z79.01 Long term (current) use of anticoagulants; W22.09XA Striking against other stationary object, initial encounter
CPT/HCPCS: 12002; 73562-26-LT; 73562-LT; 73610-26-RT; 73610-RT; 99283

== ENCOUNTER 2022-08-11 18:25 | Emergency (ER) | payer MEDICARE, BC ==
[2022-08-11] MEDS ORDERED: Albuterol/Ipratropium 3.0-0.5 MG/3 ML Neb Soln NEB ONE (18:28)
[2022-08-11 18:47] LABS: BASOPHILS ABSOLUTE AUTO 0.05 K/uL (0.00-0.10); BASOPHILS PERCENT AUTO 0.7 % (0.1-1.3); EOSINOPHILS ABSOLUTE AUTO 0.21 K/uL (0.00-0.40); EOSINOPHILS PERCENT AUTO 3.1 % (0.0-5.4); HEMATOCRIT 41.5 % (34.3-46.0); HEMOGLOBIN 13.7 g/dL (11.2-15.5); IMMATURE GRAN PERCENT AUTO 0.3 % (0.0-0.7); LYMPHOCYTES ABSOLUTE AUTO 2.52 K/uL (0.8-3.3); LYMPHOCYTES PERCENT AUTO 37.4 % (11.4-47.7); MONOCYTES ABSOLUTE AUTO 0.76 K/uL (0.20-0.90); MONOCYTES PERCENT AUTO 11.3 % (3.3-12.6); NEUTROPHILS ABSOLUTE AUTO 3.18 K/uL (1.0-7.6); NEUTROPHILS PERCENT AUTO 47.2 % (40.0-78.1); PLATELET COUNT,PLT 191 K/uL (130-375); RED BLOOD CELL COUNT 4.03 M/uL (3.77-5.24); WHITE BLOOD CELL COUNT,WBC 6.7 K/uL (3.2-11.0)
[2022-08-11 18:47] LABS: CARBOXYHEMOGLOBIN 6.9 % (0.0-1.6); METHEMOGLOBIN 0.8 %; O2 SATURATION VENOUS 61.9; OXYHEMOGLOBIN 57.1 %; PH,VENOUS 7.396 (7.350-7.450); TOTAL HEMOGLOBIN 14.2 g/dL (12.0-16.0)
[2022-08-11 18:49] LABS: IMMATURE GRAN ABSOLUTE AUTO 0.02 K/uL (0.00-0.23)
[2022-08-11 18:50] LABS: BASE EXCESS VENOUS 1.4 mm/L; BICARBONATE,VENOUS 26.1 mmol/L; PCO2 VENOUS 43.4 mm/Hg; PO2 VENOUS 34.7 mm/Hg
[2022-08-11 19:16] LABS: ANION GAP 12.6 mmol/L (5.0-14.0); CREATININE 0.8 mg/dL (0.6-1.0); EST CRCL DRUG DOSING (CG) 41.63 mL/min; POTASSIUM,K 3.6 mmol/L (3.6-5.2); TROPONIN I HIGH SENSITIVITY 14.1 pg/mL (<=60.3)
[2022-08-11 19:59] VITALS: BP 151/55; PULSE 60
== END 2022-08-11 20:07 | disposition home or self-care (01) ==
LOC: JP.ED 18:25
DX: J44.9 Chronic obstructive pulmonary disease, unspecified (principal); G14 Postpolio syndrome; I10 Essential (primary) hypertension; I48.91 Unspecified atrial fibrillation; E78.5 Hyperlipidemia, unspecified; Z20.822 Contact with and (suspected) exposure to COVID-19; Z91.041 Radiographic dye allergy status; Z88.2 Allergy status to sulfonamides; Z88.0 Allergy status to penicillin; Z88.6 Allergy status to analgesic agent; Z88.1 Allergy status to other antibiotic agents; Z79.01 Long term (current) use of anticoagulants; Z79.899 Other long term (current) drug therapy
CPT/HCPCS: 36415; 71045; 80048; 82803; 83880; 84145; 84484; 85025; 93005; 94640; 99285; U0002; J7620

== ENCOUNTER 2022-10-10 22:23 | Emergency (ER) | payer MEDICARE, BC ==
[2022-10-10] MEDS ORDERED: Sodium Chloride 0.9% 1,000 ML IV ONE (22:35)
[2022-10-10 22:47] LABS: BASOPHILS ABSOLUTE AUTO 0.12 K/uL (0.00-0.10); BASOPHILS PERCENT AUTO 0.8 % (0.1-1.3); EOSINOPHILS ABSOLUTE AUTO 0.17 K/uL (0.00-0.40); EOSINOPHILS PERCENT AUTO 1.1 % (0.0-5.4); HEMATOCRIT 37.3 % (34.3-46.0); HEMOGLOBIN 12.1 g/dL (11.2-15.5); IMMATURE GRAN ABSOLUTE AUTO 0.12 K/uL (0.00-0.23); IMMATURE GRAN PERCENT AUTO 0.8 % (0.0-0.7); LYMPHOCYTES ABSOLUTE AUTO 3.93 K/uL (0.8-3.3); LYMPHOCYTES PERCENT AUTO 24.9 % (11.4-47.7); MEAN CORPUSCULAR HEMOGLOBIN 34.2 pg (31.6-35.5); MEAN CORPUSCULAR HGB CONC 32.4 g/dL (31.6-35.5); MEAN CORPUSCULAR VOLUME 105.4 fL (81.4-99.0); MONOCYTES ABSOLUTE AUTO 1.76 K/uL (0.20-0.90); MONOCYTES PERCENT AUTO 11.1 % (3.3-12.6); NEUTROPHILS ABSOLUTE AUTO 9.71 K/uL (1.0-7.6); NEUTROPHILS PERCENT AUTO 61.3 % (40.0-78.1); PLATELET COUNT,PLT 318 K/uL (130-375); RED BLOOD CELL COUNT 3.54 M/uL (3.77-5.24); WHITE BLOOD CELL COUNT,WBC 15.8 K/uL (3.2-11.0)
[2022-10-10 23:13] LABS: A/G RATIO 0.8 (1.2-2.2); ALANINE AMINOTRANSFERASE,ALT 20 U/L (12-78); ALBUMIN 2.9 g/dL (3.4-5.0); ALKALINE PHOSPHATASE 52 U/L (46-116); ASPARTATE AMNIOTRANSFERASE,AST 19 U/L (15-37); BILIRUBIN TOTAL 0.5 mg/dL (0.2-1.0); BLOOD UREA NITROGEN,BUN 52 mg/dL (7-18); C-REACTIVE PROTEIN 1.45 mg/dL (0.0-0.3); CALCIUM 9.6 mg/dL (8.5-10.1); CARBON DIOXIDE,CO2 25 mmol/L (21-32); CHLORIDE,CL 104 mmol/L (100-108); ESTIMATED GFR 58 mL/min (>60); GLUCOSE RANDOM 106 mg/dL (74-106); POTASSIUM,K 4.9 mmol/L (3.6-5.2); PROTEIN TOTAL,TP 6.4 g/dL (6.4-8.2); SODIUM,NA 139 mmol/L (140-148)
[2022-10-10 23:14] LABS: ANION GAP 14.9 mmol/L (5.0-14.0)
[2022-10-11] MEDS ORDERED: Metoprolol Tartrate 5 MG/5 ML SDV IVPUSH ONE (01:06)
[2022-10-11] MEDS ORDERED: Sodium Chloride 0.9% 1,000 ML IV ONE (01:06)
[2022-10-11] MEDS ORDERED: Diltiazem 25 MG/5 ML SDV IVPUSH ONE ×2 (01:31→03:55)
[2022-10-11] MEDS ORDERED: Diltiazem 100 MG in Sodium Chloride 0.9% 100 ML IV SCH ×6 (02:15→07:30)
[2022-10-11 02:51] LABS: APPEARANCE,URINE CLEAR (CLEAR); BILIRUBIN,URINE NEGATIVE (NEGATIVE); COLOR,URINE YELLOW (YELLOW); GLUCOSE,URINE NEGATIVE (NEGATIVE); KETONES,URINE NEGATIVE (NEGATIVE); LEUKOCYTE ESTERASE,URINE NEGATIVE (NEGATIVE); NITRITE,URINE NEGATIVE (NEGATIVE); OCCULT BLOOD,URINE NEGATIVE (NEGATIVE); PH,URINE 6.5 (5.0-8.0); PROTEIN,URINE NEGATIVE (NEGATIVE); UROBILINOGEN,URINE 0.2 EU/dL (0.2-1.0)
[2022-10-11 02:57] LABS: AMORPHOUS SEDIMENT,URINE NOT SEEN; BACTERIA,URINE FEW; EPITHELIAL CELLS,URINE FEW; MUCUS,URINE RARE; RBC,URINE 0-5 (0-5); WBC,URINE 0-5 (0-5)
[2022-10-11] MEDS ORDERED: Ondansetron 4 MG/2 ML SDV IVPUSH ONE (05:01)
[2022-10-11] MEDS ORDERED: Pantoprazole 40 MG Vial IVPUSH ONE (05:17)
[2022-10-11] MEDS: Ampicillin/Sulbactam Na 3 GM in Sodium Chloride 0.9% 100 ML IV ONE ×2 (05:27→06:54)
[2022-10-11] MEDS ORDERED: Ciprofloxacin in D5W 400 MG in Premix Bag 1 BAG IV ONE ×2 (05:39)
[2022-10-11 05:42] LABS: HEMATOCRIT 29.2 % (34.3-46.0); HEMOGLOBIN 9.5 g/dL (11.2-15.5); MEAN CORPUSCULAR HEMOGLOBIN 34.2 pg (31.6-35.5); MEAN CORPUSCULAR HGB CONC 32.5 g/dL (31.6-35.5); PLATELET COUNT,PLT 311 K/uL (130-375); RED BLOOD CELL COUNT 2.78 M/uL (3.77-5.24); WHITE BLOOD CELL COUNT,WBC 16.6 K/uL (3.2-11.0)
[2022-10-11 05:58] LABS: ATYPICAL LYMPHOCYTES RARE; EOSINOPHILS PERCENT MAN 3 % (2-4); LYMPHOCYTES ABSOLUTE MAN 5.48 K/uL (0.8-3.3); LYMPHOCYTES PERCENT MAN 33 % (24-44); MONOCYTES ABSOLUTE MAN 0.66 K/uL (0.20-0.90); MONOCYTES PERCENT MAN 4 % (2-6); NEUTROPHILS ABSOLUTE MAN 9.96 K/uL (1.0-7.6); SEG NEUTROPHILS PERCENT MAN 60 % (36-66)
[2022-10-11] MEDS ORDERED: LORazepam 2 MG/ML SDV IVPUSH ONE (06:06)
[2022-10-11 06:30] VITALS: BP 108/57; PULSE 103
[2022-10-11 06:50] LABS: INR 1.4; PROTHROMBIN TIME 13.6 sec (9.2-10.6)
== END 2022-10-11 07:18 | disposition other institution (70) ==
LOC: JP.ED 22:23
DX: K92.2 Gastrointestinal hemorrhage, unspecified (principal); I48.91 Unspecified atrial fibrillation; I10 Essential (primary) hypertension; E78.00 Pure hypercholesterolemia, unspecified; F17.210 Nicotine dependence, cigarettes, uncomplicated; Z88.8 Allergy status to other drugs, medicaments and biological substances; Z88.0 Allergy status to penicillin; Z88.2 Allergy status to sulfonamides; Z88.1 Allergy status to other antibiotic agents; Z91.041 Radiographic dye allergy status; Z79.899 Other long term (current) drug therapy; Z79.01 Long term (current) use of anticoagulants
CPT/HCPCS: 36415; 71250; 74176; 80053; 81001; 83605; 83880; 84484; 85025; 85379; 85610; 86140; 86850; 86900; 86901; 93005; 96361; 96365; 96366; 96368; 96375; 96376; 99285; C9113; J0744; J2060; J2405; J3490; J7030; J0295

== ENCOUNTER 2022-11-22 09:07 | Inpatient (IN) | payer MEDICARE, BC ==
[2022-11-22] MEDS ORDERED: droPERidol 5 MG/2 ML SDV IVPUSH ONE (09:20)
[2022-11-22] MEDS ORDERED: HYDROmorphone 0.5 MG/0.5 ML Syringe IVPUSH ONE (09:21)
[2022-11-22 09:30] LABS: BASOPHILS ABSOLUTE AUTO 0.08 K/uL (0.00-0.10); EOSINOPHILS ABSOLUTE AUTO 0.27 K/uL (0.00-0.40); EOSINOPHILS PERCENT AUTO 3.2 % (0.0-5.4); HEMATOCRIT 25.6 % (34.3-46.0); HEMOGLOBIN 7.7 g/dL (11.2-15.5); IMMATURE GRAN ABSOLUTE AUTO 0.08 K/uL (0.00-0.23); LYMPHOCYTES ABSOLUTE AUTO 1.34 K/uL (0.8-3.3); MEAN CORPUSCULAR HEMOGLOBIN 31.7 pg (31.6-35.5); MEAN CORPUSCULAR HGB CONC 30.1 g/dL (31.6-35.5); MEAN CORPUSCULAR VOLUME 105.3 fL (81.4-99.0); MONOCYTES ABSOLUTE AUTO 0.87 K/uL (0.20-0.90); MONOCYTES PERCENT AUTO 10.4 % (3.3-12.6); NEUTROPHILS ABSOLUTE AUTO 5.73 K/uL (1.0-7.6); NEUTROPHILS PERCENT AUTO 68.4 % (40.0-78.1); PLATELET COUNT,PLT 276 K/uL (130-375); RED BLOOD CELL COUNT 2.43 M/uL (3.77-5.24); WHITE BLOOD CELL COUNT,WBC 8.4 K/uL (3.2-11.0)
[2022-11-22] MEDS: Lactated Ringers 1,000 ML IV SCH ×2 (09:31→10:16)
[2022-11-22 09:58] LABS: LACTIC ACID 4.7 mmol/L (0.4-2.0)
[2022-11-22] MEDS ORDERED: Levofloxacin/Dextrose 5%-Water 750 MG in Premix Bag 1 BAG IV ONE (10:00)
[2022-11-22 10:01] LABS: ALANINE AMINOTRANSFERASE,ALT 22 U/L (12-78); ALBUMIN 2.4 g/dL (3.4-5.0); ALKALINE PHOSPHATASE 47 U/L (46-116); ANION GAP 12.7 mmol/L (5.0-14.0); ASPARTATE AMNIOTRANSFERASE,AST 15 U/L (15-37); BILIRUBIN TOTAL 0.3 mg/dL (0.2-1.0); BLOOD UREA NITROGEN,BUN 14 mg/dL (7-18); C-REACTIVE PROTEIN 0.19 mg/dL (0.0-0.3); CALCIUM 7.8 mg/dL (8.5-10.1); CARBON DIOXIDE,CO2 22 mmol/L (21-32); CHLORIDE,CL 105 mmol/L (100-108); ESTIMATED GFR 58 mL/min (>60); GLUCOSE RANDOM 249 mg/dL (74-106); POTASSIUM,K 4.2 mmol/L (3.6-5.2); PROTEIN TOTAL,TP 4.9 g/dL (6.4-8.2); SODIUM,NA 140 mmol/L (140-148)
[2022-11-22] MEDS ORDERED: Lactated Ringers 1,000 ML IV ONE (10:14)
[2022-11-22] MEDS ORDERED: Norepinephrine Bit/D5W Premix 4 MG in Premix Bag 1 BAG IV SCH (11:00)
[2022-11-22] MEDS ORDERED: Bupivacaine 0.5% 50 ML MDV ONE (11:19)
[2022-11-22] MEDS ORDERED: Lidocaine 1% with EPINEPHrine 1:100,000 50 ML MDV ONE (11:19)
[2022-11-22] MEDS ORDERED: Meropenem 500 MG SDV ONE ×3 (11:19→12:30)
[2022-11-22] MEDS ORDERED: fentaNYL 250 MCG/5 ML SDV ONE (11:22)
[2022-11-22] MEDS ORDERED: Succinylcholine 200 MG/10 ML MDV ONE (11:36)
[2022-11-22] MEDS ORDERED: Glycopyrrolate 0.2 MG/ML 5 ML MDV ONE (11:36)
[2022-11-22] MEDS ORDERED: Etomidate 2 MG/ML 10 ML SDV ONE (11:36)
[2022-11-22] MEDS ORDERED: Rocuronium 50 MG/5 ML Vial ONE (11:36)
[2022-11-22] MEDS ORDERED: Neostigmine Methylsulfate 1 MG/ML 5 ML Syringe ONE (11:36)
[2022-11-22] MEDS ORDERED: Sodium Chloride 0.9% 10 ML ONE (12:30)
[2022-11-22] MEDS ORDERED: Tranexamic Acid 550 MG in Sodium Chloride 0.9% 50 ML IV ONE ×2 (12:30→16:00)
[2022-11-22] MEDS ORDERED: diphenhydrAMINE 50 MG/ML SDV IVPUSH PRN ×2 (13:19→16:00)
[2022-11-22] MEDS ORDERED: Naloxone 0.4 MG/ML SDV IVPUSH PRN (13:19)
[2022-11-22] MEDS ORDERED: Ondansetron 4 MG/2 ML SDV IVPUSH PRN ×2 (13:19→16:00)
[2022-11-22] MEDS ORDERED: diphenhydrAMINE 25 MG Cap PO PRN (13:19)
[2022-11-22] MEDS: HYDROmorphone/Normal Saline 6 MG/30 ML PCA Vial IV PRN (13:24)
[2022-11-22] MEDS ORDERED: Sugammadex Sodium 200 MG/2 ML VIAL ONE (13:26)
[2022-11-22] MEDS ORDERED: Naloxone 0.4 MG/ML SDV IV PRN (14:00)
[2022-11-22 14:05] LABS: BASOPHILS ABSOLUTE AUTO 0.04 K/uL (0.00-0.10); BASOPHILS PERCENT AUTO 0.3 % (0.1-1.3); EOSINOPHILS ABSOLUTE AUTO 0.03 K/uL (0.00-0.40); EOSINOPHILS PERCENT AUTO 0.2 % (0.0-5.4); HEMATOCRIT 34.8 % (34.3-46.0); HEMOGLOBIN 11.6 g/dL (11.2-15.5); IMMATURE GRAN ABSOLUTE AUTO 0.13 K/uL (0.00-0.23); LYMPHOCYTES ABSOLUTE AUTO 0.82 K/uL (0.8-3.3); LYMPHOCYTES PERCENT AUTO 6.3 % (11.4-47.7); MEAN CORPUSCULAR HEMOGLOBIN 30.7 pg (31.6-35.5); MEAN CORPUSCULAR HGB CONC 33.3 g/dL (31.6-35.5); MEAN CORPUSCULAR VOLUME 92.1 fL (81.4-99.0); MONOCYTES ABSOLUTE AUTO 1.18 K/uL (0.20-0.90); MONOCYTES PERCENT AUTO 9.1 % (3.3-12.6); NEUTROPHILS ABSOLUTE AUTO 10.81 K/uL (1.0-7.6); NEUTROPHILS PERCENT AUTO 83.1 % (40.0-78.1); PLATELET COUNT,PLT 140 K/uL (130-375); RED BLOOD CELL COUNT 3.78 M/uL (3.77-5.24)
[2022-11-22 14:24] LABS: INR 1.3; PROTHROMBIN TIME 12.7 sec (9.2-10.6); PTT,PARTIAL THROMBOPLSTIN TIME 28.3 sec (21.8-27.3)
[2022-11-22 14:27] LABS: ALANINE AMINOTRANSFERASE,ALT 28 U/L (12-78); ALBUMIN 2.5 g/dL (3.4-5.0); ALKALINE PHOSPHATASE 58 U/L (46-116); ANION GAP 14.2 mmol/L (5.0-14.0); ASPARTATE AMNIOTRANSFERASE,AST 64 U/L (15-37); BILIRUBIN TOTAL 0.5 mg/dL (0.2-1.0); BLOOD UREA NITROGEN,BUN 14 mg/dL (7-18); CALCIUM 7.3 mg/dL (8.5-10.1); CARBON DIOXIDE,CO2 24 mmol/L (21-32); CHLORIDE,CL 105 mmol/L (100-108); CREATININE 0.7 mg/dL (0.6-1.0); EST CRCL DRUG DOSING (CG) 47.58 mL/min; ESTIMATED GFR 88 mL/min (>60); GLUCOSE RANDOM 159 mg/dL (74-106); MAGNESIUM 1.4 mg/dL (1.8-2.4); PHOSPHORUS 4.2 mg/dL (2.5-4.9); POTASSIUM,K 4.2 mmol/L (3.6-5.2); SODIUM,NA 139 mmol/L (140-148)
[2022-11-22 14:30] LABS: LACTIC ACID 1.4 mmol/L (0.4-2.0)
[2022-11-22] MEDS ORDERED: Cyclobenzaprine 10 MG Tab PO PRN (15:20)
[2022-11-22] MEDS ORDERED: Nitroglycerin 0.4 MG Tab.SL SL PRN (15:28)
[2022-11-22] MEDS ORDERED: Labetalol 20 MG/4 ML Syringe IVPUSH PRN (16:00)
[2022-11-22] MEDS ORDERED: hydrOXYzine HCL 100 MG/2 ML SDV IM PRN (16:00)
[2022-11-22] MEDS: Pantoprazole 40 MG Vial IVPUSH SCH (16:16)
[2022-11-22] MEDS: Meropenem 500 MG in Sodium Chloride 0.9% 50 ML IV SCH (17:58)
[2022-11-22] MEDS: MVI, Adult with Vitamin K 10 ML, Thiamine 200 MG, Zinc/Copper/Manganese/Selenium 1 ML i... IV SCH ×4 (18:05)
[2022-11-22] MEDS ORDERED: Heparin Sodium 5,000 UNITS in Sodium Chloride 0.9% 500 ML IV SCH (18:15)
[2022-11-22] MEDS ORDERED: Lactated Ringers 500 ML IV SCH (21:00)
[2022-11-22] MEDS: Acetaminophen 1,000 MG in Premix Bag 1 BAG IV SCH (22:15)
[2022-11-22] MEDS: Sotalol 80 MG Tab PO SCH (22:18)
[2022-11-23] MEDS: Meropenem 500 MG in Sodium Chloride 0.9% 50 ML IV SCH ×3 (00:13→13:32)
[2022-11-23] MEDS ORDERED: Lactated Ringers 500 ML IV ONE ×2 (00:30→03:43)
[2022-11-23] MEDS: HYDROmorphone/Normal Saline 6 MG/30 ML PCA Vial IV PRN ×2 (03:32→22:04)
[2022-11-23 05:16] LABS: BASOPHILS PERCENT AUTO 0.1 % (0.1-1.3); HEMATOCRIT 29.4 % (34.3-46.0); HEMOGLOBIN 9.6 g/dL (11.2-15.5); IMMATURE GRAN PERCENT AUTO 0.6 % (0.0-0.7); LYMPHOCYTES ABSOLUTE AUTO 1.19 K/uL (0.8-3.3); MEAN CORPUSCULAR HEMOGLOBIN 30.5 pg (31.6-35.5); MEAN CORPUSCULAR HGB CONC 32.7 g/dL (31.6-35.5); MEAN CORPUSCULAR VOLUME 93.3 fL (81.4-99.0); MONOCYTES ABSOLUTE AUTO 1.48 K/uL (0.20-0.90); MONOCYTES PERCENT AUTO 8.7 % (3.3-12.6); NEUTROPHILS ABSOLUTE AUTO 14.31 K/uL (1.0-7.6); NEUTROPHILS PERCENT AUTO 83.6 % (40.0-78.1); PLATELET COUNT,PLT 155 K/uL (130-375); RED BLOOD CELL COUNT 3.15 M/uL (3.77-5.24); WHITE BLOOD CELL COUNT,WBC 17.1 K/uL (3.2-11.0)
[2022-11-23 05:24] LABS: BASOPHILS ABSOLUTE AUTO 0.01 K/uL (0.00-0.10)
[2022-11-23 05:37] LABS: INR 1.1; PROTHROMBIN TIME 11.2 sec (9.2-10.6); PTT,PARTIAL THROMBOPLSTIN TIME 25.5 sec (21.8-27.3)
[2022-11-23 05:45] LABS: A/G RATIO 0.9 (1.2-2.2); ALANINE AMINOTRANSFERASE,ALT 33 U/L (12-78); ALBUMIN 2.3 g/dL (3.4-5.0); ALKALINE PHOSPHATASE 51 U/L (46-116); ANION GAP 13.6 mmol/L (5.0-14.0); ASPARTATE AMNIOTRANSFERASE,AST 60 U/L (15-37); BILIRUBIN TOTAL 0.2 mg/dL (0.2-1.0); BLOOD UREA NITROGEN,BUN 17 mg/dL (7-18); CALCIUM 7.5 mg/dL (8.5-10.1); CARBON DIOXIDE,CO2 25 mmol/L (21-32); CHLORIDE,CL 105 mmol/L (100-108); CREATININE 1.1 mg/dL (0.6-1.0); EST CRCL DRUG DOSING (CG) 30.28 mL/min; ESTIMATED GFR 51 mL/min (>60); GLUCOSE RANDOM 171 mg/dL (74-106); MAGNESIUM 1.4 mg/dL (1.8-2.4); POTASSIUM,K 4.6 mmol/L (3.6-5.2); PRO B-TYPE NATRIUR PEPT,BNPPRO 990 pg/mL (5-450); PROTEIN TOTAL,TP 4.9 g/dL (6.4-8.2); SODIUM,NA 139 mmol/L (140-148)
[2022-11-23 05:48] LABS: LACTIC ACID 1.9 mmol/L (0.4-2.0)
[2022-11-23] MEDS: Acetaminophen 1,000 MG in Premix Bag 1 BAG IV SCH ×2 (06:03→14:06)
[2022-11-23] MEDS: Diltiazem 120 MG Cap.CD PO SCH (08:48)
[2022-11-23] MEDS: Spironolactone 25 MG Tab PO SCH (08:49)
[2022-11-23] MEDS: Metoprolol Succinate 50 MG Tab.ER PO SCH (08:49)
[2022-11-23] MEDS: Sotalol 80 MG Tab PO SCH ×2 (08:49→21:08)
[2022-11-23] MEDS: Dextrose 5%-Lactated Ringers 1,000 ML IV SCH ×2 (09:20→23:13)
[2022-11-23] MEDS: Magnesium Sulfate/Water 2 GM/50 ML BAG IV SCH ×3 (09:26→21:09)
[2022-11-23] MEDS: Pantoprazole 40 MG Vial IVPUSH SCH (15:47)
[2022-11-23] MEDS: MVI, Adult with Vitamin K 10 ML, Thiamine 200 MG, Zinc/Copper/Manganese/Selenium 1 ML i... IV SCH ×8 (16:49→17:38)
[2022-11-23] MEDS ORDERED: Acetaminophen 500 MG Tab PO PRN (18:00)
[2022-11-23] MEDS: Acetaminophen 500 MG Tab PO SCH (21:07)
[2022-11-23] MEDS ORDERED: Furosemide 20 MG/2 ML VIAL IVPUSH ONE (22:48)
[2022-11-24 04:14] LABS: HEMATOCRIT 27.4 % (34.3-46.0); HEMOGLOBIN 8.8 g/dL (11.2-15.5); MEAN CORPUSCULAR HEMOGLOBIN 30.4 pg (31.6-35.5); MEAN CORPUSCULAR HGB CONC 32.1 g/dL (31.6-35.5); MEAN CORPUSCULAR VOLUME 94.8 fL (81.4-99.0); RED BLOOD CELL COUNT 2.89 M/uL (3.77-5.24)
[2022-11-24 04:41] LABS: A/G RATIO 0.9 (1.2-2.2); ALANINE AMINOTRANSFERASE,ALT 34 U/L (12-78); ALBUMIN 2.3 g/dL (3.4-5.0); ALKALINE PHOSPHATASE 49 U/L (46-116); ANION GAP 5.2 mmol/L (5.0-14.0); BILIRUBIN TOTAL 0.2 mg/dL (0.2-1.0); BLOOD UREA NITROGEN,BUN 15 mg/dL (7-18); CARBON DIOXIDE,CO2 30 mmol/L (21-32); CHLORIDE,CL 105 mmol/L (100-108); CREATININE 0.7 mg/dL (0.6-1.0); EST CRCL DRUG DOSING (CG) 47.58 mL/min; ESTIMATED GFR 88 mL/min (>60); GLUCOSE RANDOM 135 mg/dL (74-106); PHOSPHORUS 2.9 mg/dL (2.5-4.9); POTASSIUM,K 4.1 mmol/L (3.6-5.2); PROTEIN TOTAL,TP 4.9 g/dL (6.4-8.2); SODIUM,NA 140 mmol/L (140-148)
[2022-11-24 04:42] LABS: ASPARTATE AMNIOTRANSFERASE,AST 51 U/L (15-37); PRO B-TYPE NATRIUR PEPT,BNPPRO 3083 pg/mL (5-450)
[2022-11-24] MEDS: Magnesium Sulfate/Water 2 GM/50 ML BAG IV SCH ×4 (04:57→21:03)
[2022-11-24] MEDS: Acetaminophen 500 MG Tab PO SCH ×3 (04:59→21:03)
[2022-11-24] MEDS: Dextrose 5%-Lactated Ringers 1,000 ML IV SCH ×2 (05:49→14:14)
[2022-11-24] MEDS ORDERED: Potassium Phosphates 3 mMole/ML 15 ML SDV IV ONE (08:29)
[2022-11-24] MEDS: Diltiazem 120 MG Cap.CD PO SCH (08:32)
[2022-11-24] MEDS: Sotalol 80 MG Tab PO SCH ×2 (08:33→21:03)
[2022-11-24] MEDS: Spironolactone 25 MG Tab PO SCH (08:33)
[2022-11-24] MEDS: Metoprolol Succinate 50 MG Tab.ER PO SCH (08:33)
[2022-11-24] MEDS ORDERED: Furosemide 20 MG/2 ML VIAL IVPUSH ONE ×2 (08:45→17:39)
[2022-11-24] MEDS: Potassium Phos in 0.9 % NaCl 15 MMOL in Premix Bag 1 BAG IV SCH ×6 (09:03→15:20)
[2022-11-24] MEDS: Pantoprazole 40 MG Vial IVPUSH SCH (16:02)
[2022-11-24 17:28] LABS: CALCIUM 7.7 mg/dL (8.5-10.1); CREATININE 0.7 mg/dL (0.6-1.0); EST CRCL DRUG DOSING (CG) 47.58 mL/min; POTASSIUM,K 4.7 mmol/L (3.6-5.2)
[2022-11-24 17:31] LABS: ANION GAP 9.7 mmol/L (5.0-14.0)
[2022-11-25] MEDS: Dextrose 5%-Lactated Ringers 1,000 ML IV SCH ×3 (02:04→22:12)
[2022-11-25] MEDS: Magnesium Sulfate/Water 2 GM/50 ML BAG IV SCH ×4 (03:22→21:29)
[2022-11-25] MEDS: HYDROmorphone/Normal Saline 6 MG/30 ML PCA Vial IV PRN (04:51)
[2022-11-25 04:55] LABS: HEMATOCRIT 26.2 % (34.3-46.0); HEMOGLOBIN 8.6 g/dL (11.2-15.5); MEAN CORPUSCULAR HEMOGLOBIN 30.8 pg (31.6-35.5); MEAN CORPUSCULAR HGB CONC 32.8 g/dL (31.6-35.5); MEAN CORPUSCULAR VOLUME 93.9 fL (81.4-99.0); RED BLOOD CELL COUNT 2.79 M/uL (3.77-5.24); WHITE BLOOD CELL COUNT,WBC 18.4 K/uL (3.2-11.0)
[2022-11-25 05:25] LABS: A/G RATIO 0.8 (1.2-2.2); ALANINE AMINOTRANSFERASE,ALT 32 U/L (12-78); ALBUMIN 2.2 g/dL (3.4-5.0); ALKALINE PHOSPHATASE 56 U/L (46-116); ANION GAP 9.2 mmol/L (5.0-14.0); ASPARTATE AMNIOTRANSFERASE,AST 49 U/L (15-37); BILIRUBIN TOTAL 0.3 mg/dL (0.2-1.0); BLOOD UREA NITROGEN,BUN 12 mg/dL (7-18); CALCIUM 7.6 mg/dL (8.5-10.1); CARBON DIOXIDE,CO2 32 mmol/L (21-32); CHLORIDE,CL 102 mmol/L (100-108); CREATININE 0.5 mg/dL (0.6-1.0); EST CRCL DRUG DOSING (CG) 66.61 mL/min; ESTIMATED GFR 96 mL/min (>60); GLUCOSE RANDOM 103 mg/dL (74-106); PHOSPHORUS 3.9 mg/dL (2.5-4.9); POTASSIUM,K 4.2 mmol/L (3.6-5.2); PRO B-TYPE NATRIUR PEPT,BNPPRO 5255 pg/mL (5-450); SODIUM,NA 139 mmol/L (140-148)
[2022-11-25] MEDS: Acetaminophen 500 MG Tab PO SCH ×3 (06:32→21:30)
[2022-11-25] MEDS ORDERED: Meropenem 500 MG SDV ONE ×2 (06:44→10:09)
[2022-11-25] MEDS ORDERED: Lidocaine 1% with EPINEPHrine 1:100,000 50 ML MDV ONE (06:45)
[2022-11-25] MEDS ORDERED: Bupivacaine 0.5% 50 ML MDV ONE (06:45)
[2022-11-25] MEDS ORDERED: Dexamethasone 4 MG/ML SDV ONE (07:19)
[2022-11-25] MEDS ORDERED: fentaNYL 250 MCG/5 ML SDV ONE (07:19)
[2022-11-25] MEDS ORDERED: Ondansetron 4 MG/2 ML SDV ONE (07:19)
[2022-11-25] MEDS ORDERED: Neostigmine Methylsulfate 1 MG/ML 5 ML Syringe ONE (07:19)
[2022-11-25] MEDS: Diltiazem 120 MG Cap.CD PO SCH ×2 (07:19→13:10)
[2022-11-25] MEDS ORDERED: Propofol 200 MG/20 ML SDV ONE (07:19)
[2022-11-25] MEDS ORDERED: Succinylcholine 200 MG/10 ML MDV ONE (07:19)
[2022-11-25] MEDS ORDERED: Glycopyrrolate 0.2 MG/ML 5 ML MDV ONE (07:19)
[2022-11-25] MEDS ORDERED: Rocuronium 50 MG/5 ML Vial ONE ×2 (07:19→10:54)
[2022-11-25] MEDS: Metoprolol Succinate 50 MG Tab.ER PO SCH ×2 (07:20→13:10)
[2022-11-25] MEDS: Sotalol 80 MG Tab PO SCH ×3 (07:20→21:29)
[2022-11-25] MEDS ORDERED: Ketamine 13 MG in Sodium Chloride 0.9% 19.87 ML IV SCH (07:30)
[2022-11-25] MEDS ORDERED: Ketamine 500 MG/5 ML MDV IV SCH ×3 (07:30→10:00)
[2022-11-25] MEDS ORDERED: Phenylephrine 1% 10 MG/ML SDV ONE (09:16)
[2022-11-25] MEDS ORDERED: Sodium Chloride 0.9% 10 ML ONE (09:16)
[2022-11-25] MEDS ORDERED: Linezolid 600 MG/300 ML Premix Bag IRR ONE (10:19)
[2022-11-25] MEDS ORDERED: Lactated Ringers 1,000 ML ONE (10:20)
[2022-11-25] MEDS ORDERED: Sugammadex Sodium 200 MG/2 ML VIAL ONE (11:43)
[2022-11-25] MEDS ORDERED: Meropenem 500 MG in Sodium Chloride 0.9% 50 ML IV ONE (12:00)
[2022-11-25] MEDS: Linezolid 600 MG in Premix Bag 1 BAG IV SCH (13:29)
[2022-11-25] MEDS ORDERED: Heparin Sodium 5,000 UNITS in Sodium Chloride 0.9% 500 ML IV SCH (16:00)
[2022-11-25] MEDS: Pantoprazole 40 MG Vial IVPUSH SCH (16:13)
[2022-11-25] MEDS: Spironolactone 25 MG Tab PO SCH (16:13)
[2022-11-25] MEDS: WATER FOR INJECTION IV SCH (18:03)
[2022-11-25] MEDS: MEROPENEM IV SCH (18:03)
[2022-11-25] MEDS: STERILE IV SCH (18:03)
[2022-11-26] MEDS: MEROPENEM IV SCH ×2 (00:18→05:00)
[2022-11-26] MEDS: Linezolid 600 MG in Premix Bag 1 BAG IV SCH ×2 (00:18→12:51)
[2022-11-26] MEDS: WATER FOR INJECTION IV SCH ×2 (00:18→05:00)
[2022-11-26] MEDS: STERILE IV SCH ×2 (00:18→05:00)
[2022-11-26 04:37] LABS: HEMATOCRIT 29.2 % (34.3-46.0); HEMOGLOBIN 9.4 g/dL (11.2-15.5); MEAN CORPUSCULAR HEMOGLOBIN 30.4 pg (31.6-35.5); MEAN CORPUSCULAR HGB CONC 32.2 g/dL (31.6-35.5); MEAN CORPUSCULAR VOLUME 94.5 fL (81.4-99.0); RED BLOOD CELL COUNT 3.09 M/uL (3.77-5.24)
[2022-11-26] MEDS: Magnesium Sulfate/Water 2 GM/50 ML BAG IV SCH (04:59)
[2022-11-26] MEDS: Acetaminophen 500 MG Tab PO SCH ×3 (05:00→21:52)
[2022-11-26 05:10] LABS: A/G RATIO 0.7 (1.2-2.2); ALANINE AMINOTRANSFERASE,ALT 32 U/L (12-78); ALKALINE PHOSPHATASE 64 U/L (46-116); ASPARTATE AMNIOTRANSFERASE,AST 32 U/L (15-37); BILIRUBIN TOTAL 0.3 mg/dL (0.2-1.0); BLOOD UREA NITROGEN,BUN 14 mg/dL (7-18); CALCIUM 7.9 mg/dL (8.5-10.1); CARBON DIOXIDE,CO2 29 mmol/L (21-32); CHLORIDE,CL 100 mmol/L (100-108); CREATININE 0.8 mg/dL (0.6-1.0); EST CRCL DRUG DOSING (CG) 41.63 mL/min; ESTIMATED GFR 75 mL/min (>60); GLUCOSE RANDOM 210 mg/dL (74-106); MAGNESIUM 3.1 mg/dL (1.8-2.4); PHOSPHORUS 3.7 mg/dL (2.5-4.9); POTASSIUM,K 4.6 mmol/L (3.6-5.2); PRO B-TYPE NATRIUR PEPT,BNPPRO 4513 pg/mL (5-450); SODIUM,NA 136 mmol/L (140-148)
[2022-11-26 05:11] LABS: ANION GAP 11.6 mmol/L (5.0-14.0)
[2022-11-26] MEDS: HYDROmorphone/Normal Saline 6 MG/30 ML PCA Vial IV PRN (05:29)
[2022-11-26] MEDS: Diltiazem 120 MG Cap.CD PO SCH (09:02)
[2022-11-26] MEDS: Sotalol 80 MG Tab PO SCH ×2 (09:02→21:53)
[2022-11-26] MEDS: Spironolactone 25 MG Tab PO SCH (09:02)
[2022-11-26] MEDS: Metoprolol Succinate 50 MG Tab.ER PO SCH (09:03)
[2022-11-26] MEDS: Dextrose 5%-Lactated Ringers 1,000 ML IV SCH ×2 (09:15→22:59)
[2022-11-26] MEDS ORDERED: Cyclobenzaprine 10 MG Tab PO SCH (10:00)
[2022-11-26] MEDS ORDERED: Diltiazem 25 MG/5 ML SDV IVPUSH ONE (10:01)
[2022-11-26] MEDS ORDERED: Haloperidol Lactate 5 MG/ML SDV IV PRN (10:35)
[2022-11-26] MEDS: Diltiazem 100 MG in Sodium Chloride 0.9% 100 ML IV SCH ×2 (10:45→18:27)
[2022-11-26] MEDS: hydrOXYzine HCL 100 MG/2 ML SDV IM PRN (11:09)
[2022-11-26] MEDS: Metoprolol Tartrate 25 MG Tab PO SCH ×2 (14:10→21:53)
[2022-11-26] MEDS: Meropenem 1 GM in Sodium Chloride 0.9% 100 ML IV SCH (14:12)
[2022-11-26] MEDS: Pantoprazole 40 MG Vial IVPUSH SCH (15:55)
[2022-11-27] MEDS: Linezolid 600 MG in Premix Bag 1 BAG IV SCH ×2 (00:37→13:07)
[2022-11-27] MEDS: Meropenem 1 GM in Sodium Chloride 0.9% 100 ML IV SCH ×2 (01:49→14:09)
[2022-11-27] MEDS: Diltiazem 100 MG in Sodium Chloride 0.9% 100 ML IV SCH ×3 (02:59→22:45)
[2022-11-27 04:39] LABS: BASOPHILS PERCENT AUTO 0.1 % (0.1-1.3); HEMATOCRIT 26.2 % (34.3-46.0); HEMOGLOBIN 8.5 g/dL (11.2-15.5); IMMATURE GRAN ABSOLUTE AUTO 0.26 K/uL (0.00-0.23); IMMATURE GRAN PERCENT AUTO 1.1 % (0.0-0.7); LYMPHOCYTES ABSOLUTE AUTO 1.61 K/uL (0.8-3.3); LYMPHOCYTES PERCENT AUTO 6.8 % (11.4-47.7); MEAN CORPUSCULAR HEMOGLOBIN 30.8 pg (31.6-35.5); MEAN CORPUSCULAR HGB CONC 32.4 g/dL (31.6-35.5); MEAN CORPUSCULAR VOLUME 94.9 fL (81.4-99.0); MONOCYTES ABSOLUTE AUTO 2.95 K/uL (0.20-0.90); MONOCYTES PERCENT AUTO 12.4 % (3.3-12.6); NEUTROPHILS ABSOLUTE AUTO 18.88 K/uL (1.0-7.6); NEUTROPHILS PERCENT AUTO 79.6 % (40.0-78.1); PLATELET COUNT,PLT 417 K/uL (130-375); RED BLOOD CELL COUNT 2.76 M/uL (3.77-5.24); WHITE BLOOD CELL COUNT,WBC 23.7 K/uL (3.2-11.0)
[2022-11-27 04:53] LABS: BASOPHILS ABSOLUTE AUTO 0.02 K/uL (0.00-0.10)
[2022-11-27 05:11] LABS: A/G RATIO 0.6 (1.2-2.2); ALANINE AMINOTRANSFERASE,ALT 34 U/L (12-78); ALBUMIN 1.9 g/dL (3.4-5.0); ALKALINE PHOSPHATASE 60 U/L (46-116); ASPARTATE AMNIOTRANSFERASE,AST 27 U/L (15-37); BILIRUBIN TOTAL 0.3 mg/dL (0.2-1.0); BLOOD UREA NITROGEN,BUN 15 mg/dL (7-18); CALCIUM 8.2 mg/dL (8.5-10.1); CARBON DIOXIDE,CO2 29 mmol/L (21-32); CHLORIDE,CL 100 mmol/L (100-108); CREATININE 0.7 mg/dL (0.6-1.0); EST CRCL DRUG DOSING (CG) 47.58 mL/min; ESTIMATED GFR 88 mL/min (>60); GLUCOSE RANDOM 127 mg/dL (74-106); PHOSPHORUS 3.5 mg/dL (2.5-4.9); POTASSIUM,K 4.6 mmol/L (3.6-5.2); PRO B-TYPE NATRIUR PEPT,BNPPRO 3718 pg/mL (5-450); PROTEIN TOTAL,TP 5.1 g/dL (6.4-8.2); SODIUM,NA 137 mmol/L (140-148)
[2022-11-27 05:13] LABS: ANION GAP 12.6 mmol/L (5.0-14.0)
[2022-11-27] MEDS: Acetaminophen 500 MG Tab PO SCH ×4 (06:10→22:13)
[2022-11-27] MEDS: Metoprolol Tartrate 25 MG Tab PO SCH ×4 (06:10→22:16)
[2022-11-27] MEDS: HYDROmorphone/Normal Saline 6 MG/30 ML PCA Vial IV PRN (08:36)
[2022-11-27] MEDS: Spironolactone 25 MG Tab PO SCH (09:05)
[2022-11-27] MEDS: Sotalol 80 MG Tab PO SCH ×2 (09:06→20:20)
[2022-11-27] MEDS ORDERED: Furosemide 20 MG/2 ML VIAL IV ONE ×3 (09:30→14:00)
[2022-11-27] MEDS: Albumin Human 100 ML IV SCH (13:26)
[2022-11-27] MEDS: Pantoprazole 40 MG Vial IVPUSH SCH (15:57)
[2022-11-27] MEDS: Dextrose 5%-Lactated Ringers 1,000 ML IV SCH (15:57)
[2022-11-27] MEDS: hydrOXYzine HCL 100 MG/2 ML SDV IM PRN (20:20)
[2022-11-27] MEDS: Baclofen 10 MG Tab PO PRN (20:21)
[2022-11-28] MEDS: Linezolid 600 MG in Premix Bag 1 BAG IV SCH ×2 (00:49→13:29)
[2022-11-28] MEDS: Meropenem 1 GM in Sodium Chloride 0.9% 100 ML IV SCH ×2 (01:39→13:31)
[2022-11-28] MEDS: hydrOXYzine HCL 100 MG/2 ML SDV IM PRN (02:16)
[2022-11-28 04:45] LABS: BASOPHILS ABSOLUTE AUTO 0.03 K/uL (0.00-0.10); BASOPHILS PERCENT AUTO 0.1 % (0.1-1.3); EOSINOPHILS PERCENT AUTO 0.1 % (0.0-5.4); HEMOGLOBIN 10.4 g/dL (11.2-15.5); IMMATURE GRAN PERCENT AUTO 0.9 % (0.0-0.7); LYMPHOCYTES ABSOLUTE AUTO 2.14 K/uL (0.8-3.3); MEAN CORPUSCULAR HEMOGLOBIN 28.7 pg (31.6-35.5); MEAN CORPUSCULAR HGB CONC 31.5 g/dL (31.6-35.5); MEAN CORPUSCULAR VOLUME 90.9 fL (81.4-99.0); MONOCYTES ABSOLUTE AUTO 3.02 K/uL (0.20-0.90); MONOCYTES PERCENT AUTO 14.1 % (3.3-12.6); NEUTROPHILS ABSOLUTE AUTO 15.94 K/uL (1.0-7.6); NEUTROPHILS PERCENT AUTO 74.8 % (40.0-78.1); PLATELET COUNT,PLT 472 K/uL (130-375); RED BLOOD CELL COUNT 3.63 M/uL (3.77-5.24); WHITE BLOOD CELL COUNT,WBC 21.4 K/uL (3.2-11.0)
[2022-11-28 05:14] LABS: A/G RATIO 0.7 (1.2-2.2); ALANINE AMINOTRANSFERASE,ALT 36 U/L (12-78); ALBUMIN 2.3 g/dL (3.4-5.0); ALKALINE PHOSPHATASE 66 U/L (46-116); ASPARTATE AMNIOTRANSFERASE,AST 25 U/L (15-37); BILIRUBIN TOTAL 0.6 mg/dL (0.2-1.0); BLOOD UREA NITROGEN,BUN 13 mg/dL (7-18); CALCIUM 8.5 mg/dL (8.5-10.1); CARBON DIOXIDE,CO2 31 mmol/L (21-32); CHLORIDE,CL 101 mmol/L (100-108); CREATININE 0.6 mg/dL (0.6-1.0); EST CRCL DRUG DOSING (CG) 55.51 mL/min; ESTIMATED GFR 92 mL/min (>60); GLUCOSE RANDOM 95 mg/dL (74-106); MAGNESIUM 1.5 mg/dL (1.8-2.4); PHOSPHORUS 3.4 mg/dL (2.5-4.9); POTASSIUM,K 3.7 mmol/L (3.6-5.2); PRO B-TYPE NATRIUR PEPT,BNPPRO 5772 pg/mL (5-450); PROTEIN TOTAL,TP 5.5 g/dL (6.4-8.2); SODIUM,NA 139 mmol/L (140-148)
[2022-11-28 05:18] LABS: EOSINOPHILS ABSOLUTE AUTO 0.02 K/uL (0.00-0.40)
[2022-11-28 05:19] LABS: ANION GAP 10.7 mmol/L (5.0-14.0)
[2022-11-28] MEDS: Dextrose 5%-Lactated Ringers 1,000 ML IV SCH ×2 (05:32→16:17)
[2022-11-28] MEDS: Metoprolol Tartrate 25 MG Tab PO SCH ×4 (05:43→21:18)
[2022-11-28] MEDS ORDERED: Bupivacaine 0.5% 50 ML MDV ONE (06:43)
[2022-11-28] MEDS ORDERED: Meropenem 500 MG SDV ONE (06:43)
[2022-11-28] MEDS ORDERED: Lidocaine 1% with EPINEPHrine 1:100,000 50 ML MDV ONE (06:43)
[2022-11-28] MEDS ORDERED: Furosemide 20 MG/2 ML VIAL IVPUSH ONE ×3 (06:45→22:34)
[2022-11-28] MEDS ORDERED: fentaNYL 100 MCG/2 ML SDV ONE (07:19)
[2022-11-28] MEDS ORDERED: Propofol 200 MG/20 ML SDV ONE (07:20)
[2022-11-28] MEDS: Acetaminophen 500 MG Tab PO SCH ×4 (07:45→21:17)
[2022-11-28] MEDS ORDERED: Heparin Sodium 5,000 UNITS in Sodium Chloride 0.9% 500 ML IV SCH (08:45)
[2022-11-28] MEDS: Heparin Sodium 5,000 UNITS in Sodium Chloride 0.9% 500 ML IV SCH (09:34)
[2022-11-28] MEDS: Magnesium Sulfate/Water 2 GM in Premix Bag 1 BAG IV SCH ×3 (11:35→23:44)
[2022-11-28] MEDS: Diltiazem 100 MG in Sodium Chloride 0.9% 100 ML IV SCH ×2 (11:41→21:49)
[2022-11-28] MEDS: Sotalol 80 MG Tab PO SCH ×2 (13:25→20:03)
[2022-11-28] MEDS: Spironolactone 25 MG Tab PO SCH (13:25)
[2022-11-28] MEDS: Azithromycin 125 MG in Sodium Chloride 0.9% 100 ML IV SCH (14:00)
[2022-11-28] MEDS: Albumin Human 100 ML IV SCH (14:05)
[2022-11-28] MEDS: Pantoprazole 40 MG Vial IVPUSH SCH (15:55)
[2022-11-28] MEDS: HYDROmorphone/Normal Saline 6 MG/30 ML PCA Vial IV PRN (19:40)
[2022-11-28] MEDS: Baclofen 10 MG Tab PO PRN (20:07)
[2022-11-29] MEDS: Linezolid 600 MG in Premix Bag 1 BAG IV SCH ×2 (01:03→12:15)
[2022-11-29] MEDS: Meropenem 1 GM in Sodium Chloride 0.9% 100 ML IV SCH ×2 (02:30→13:18)
[2022-11-29] MEDS: Azithromycin 125 MG in Sodium Chloride 0.9% 100 ML IV SCH ×2 (03:07→14:05)
[2022-11-29 04:39] LABS: HEMATOCRIT 29.5 % (34.3-46.0); HEMOGLOBIN 9.4 g/dL (11.2-15.5); MEAN CORPUSCULAR HEMOGLOBIN 28.8 pg (31.6-35.5); MEAN CORPUSCULAR HGB CONC 31.9 g/dL (31.6-35.5); MEAN CORPUSCULAR VOLUME 90.5 fL (81.4-99.0); RED BLOOD CELL COUNT 3.26 M/uL (3.77-5.24); WHITE BLOOD CELL COUNT,WBC 24.1 K/uL (3.2-11.0)
[2022-11-29 05:05] LABS: A/G RATIO 0.9 (1.2-2.2); ALANINE AMINOTRANSFERASE,ALT 22 U/L (12-78); ALBUMIN 2.6 g/dL (3.4-5.0); ALKALINE PHOSPHATASE 60 U/L (46-116); ASPARTATE AMNIOTRANSFERASE,AST 17 U/L (15-37); BILIRUBIN TOTAL 0.5 mg/dL (0.2-1.0); BLOOD UREA NITROGEN,BUN 11 mg/dL (7-18); CALCIUM 8.5 mg/dL (8.5-10.1); CARBON DIOXIDE,CO2 31 mmol/L (21-32); CHLORIDE,CL 102 mmol/L (100-108); CREATININE 0.6 mg/dL (0.6-1.0); EST CRCL DRUG DOSING (CG) 55.51 mL/min; ESTIMATED GFR 92 mL/min (>60); GLUCOSE RANDOM 158 mg/dL (74-106); PHOSPHORUS 3.3 mg/dL (2.5-4.9); POTASSIUM,K 3.4 mmol/L (3.6-5.2); PRO B-TYPE NATRIUR PEPT,BNPPRO 5709 pg/mL (5-450); PROTEIN TOTAL,TP 5.6 g/dL (6.4-8.2); SODIUM,NA 140 mmol/L (140-148)
[2022-11-29 05:17] LABS: ANION GAP 10.4 mmol/L (5.0-14.0)
[2022-11-29] MEDS ORDERED: Furosemide 20 MG/2 ML VIAL IVPUSH ONE ×3 (05:33→18:00)
[2022-11-29] MEDS: Magnesium Sulfate/Water 2 GM in Premix Bag 1 BAG IV SCH (05:41)
[2022-11-29] MEDS: Metoprolol Tartrate 25 MG Tab PO SCH ×4 (05:41→23:57)
[2022-11-29] MEDS: Dextrose 5%-Lactated Ringers 1,000 ML IV SCH (05:44)
[2022-11-29] MEDS ORDERED: Furosemide 20 MG/2 ML VIAL ONE (05:57)
[2022-11-29] MEDS: Acetaminophen 500 MG Tab PO SCH ×5 (06:04→23:30)
[2022-11-29 08:01] LABS: BASE EXCESS ARTERIAL 5.4 mm/L; BICARBONATE,ARTERIAL 28.3 mmol/L (22.0-26.0); CARBOXYHEMOGLOBIN 2.4 % (0.0-1.6); METHEMOGLOBIN 0.1 %; O2 SATURATION ARTERIAL 87.4 % (95.0-98.0); OXYHEMOGLOBIN 85.2 %; PCO2 ARTERIAL 35.6 mmHg (35.0-42.0); PO2 ARTERIAL 51.3 mmHg (75.0-100.0); TOTAL HEMOGLOBIN 10.6 g/dL (12.0-16.0)
[2022-11-29] MEDS ORDERED: Dextrose 5%-Lactated Ringers 1,000 ML IV SCH (08:19)
[2022-11-29] MEDS: Diltiazem 100 MG in Sodium Chloride 0.9% 100 ML IV SCH ×2 (08:24→18:14)
[2022-11-29] MEDS: Spironolactone 25 MG Tab PO SCH (08:28)
[2022-11-29] MEDS: Sotalol 80 MG Tab PO SCH ×3 (08:28→23:58)
[2022-11-29] MEDS ORDERED: diphenhydrAMINE 50 MG/ML SDV IVPUSH PRN ×2 (10:34→10:47)
[2022-11-29] MEDS ORDERED: Sodium Chloride 0.9% 10 ML Syringe FLUSH ONE (10:42)
[2022-11-29] MEDS ORDERED: methylPREDNISolone Sodium Succinate 40 MG/1 ML SDV IVPUSH ONE (10:45)
[2022-11-29] MEDS ORDERED: Iopamidol 755 Mg/ML 100 ML Bottle IV SCH (10:45)
[2022-11-29] MEDS ORDERED: Sodium Chloride 0.9% 100 ML IV SCH (10:45)
[2022-11-29 11:08] LABS: AMYLASE,BODY FLUID 15152 U/L
[2022-11-29 11:08] LABS: AMYLASE,BODY FLUID 6939 U/L
[2022-11-29 11:17] LABS: AMYLASE BODY FLUID TYPE JP DRAINAGE #1
[2022-11-29 11:17] LABS: AMYLASE BODY FLUID TYPE JP DRAINAGE #2
[2022-11-29] MEDS: MAGNESIUM SULFATE IV SCH ×3 (11:50→23:33)
[2022-11-29] MEDS: SODIUM CHLORIDE 0.9% IV SCH ×3 (11:50→23:33)
[2022-11-29] MEDS: Albumin Human 100 ML IV SCH (13:20)
[2022-11-29] MEDS: Pantoprazole 40 MG Vial IVPUSH SCH (16:19)
[2022-11-29] MEDS: Furosemide 20 MG/2 ML VIAL IVPUSH SCH ×2 (16:20→22:23)
[2022-11-29] MEDS: HYDROmorphone/Normal Saline 6 MG/30 ML PCA Vial IV PRN (16:36)
[2022-11-29] MEDS ORDERED: LORazepam 2 MG/ML SDV IVPUSH ONE ×2 (16:41→23:55)
[2022-11-30] MEDS: Linezolid 600 MG in Premix Bag 1 BAG IV SCH ×2 (01:53→13:05)
[2022-11-30] MEDS: Meropenem 1 GM in Sodium Chloride 0.9% 100 ML IV SCH (01:59)
[2022-11-30] MEDS: hydrOXYzine HCL 100 MG/2 ML SDV IM PRN ×2 (02:41→09:35)
[2022-11-30] MEDS: Azithromycin 125 MG in Sodium Chloride 0.9% 100 ML IV SCH ×2 (02:43→14:29)
[2022-11-30] MEDS ORDERED: Haloperidol Lactate 5 MG/ML SDV IVPUSH ONE ×2 (03:01→07:38)
[2022-11-30] MEDS: Diltiazem 100 MG in Sodium Chloride 0.9% 100 ML IV SCH ×3 (03:35→18:05)
[2022-11-30 04:38] LABS: HEMATOCRIT 28.9 % (34.3-46.0); MEAN CORPUSCULAR HEMOGLOBIN 28.8 pg (31.6-35.5); MEAN CORPUSCULAR HGB CONC 31.1 g/dL (31.6-35.5); MEAN CORPUSCULAR VOLUME 92.3 fL (81.4-99.0); RED BLOOD CELL COUNT 3.13 M/uL (3.77-5.24); WHITE BLOOD CELL COUNT,WBC 23.9 K/uL (3.2-11.0)
[2022-11-30 04:44] LABS: BASE EXCESS ARTERIAL 5.1 mm/L; BICARBONATE,ARTERIAL 29.5 mmol/L (22.0-26.0); CARBOXYHEMOGLOBIN 2.7 % (0.0-1.6); METHEMOGLOBIN 0.6 %; O2 SATURATION ARTERIAL 95.5 % (95.0-98.0); OXYHEMOGLOBIN 92.3 %; PCO2 ARTERIAL 44.9 mmHg (35.0-42.0); PO2 ARTERIAL 76.1 mmHg (75.0-100.0); TOTAL HEMOGLOBIN 9.5 g/dL (12.0-16.0)
[2022-11-30] MEDS: Acetaminophen 500 MG Tab PO SCH ×3 (05:02→21:27)
[2022-11-30] MEDS: Metoprolol Tartrate 25 MG Tab PO SCH ×3 (05:02→21:27)
[2022-11-30] MEDS: Furosemide 20 MG/2 ML VIAL IVPUSH SCH ×3 (05:06→18:06)
[2022-11-30] MEDS: MAGNESIUM SULFATE IV SCH ×3 (05:06→17:49)
[2022-11-30] MEDS: SODIUM CHLORIDE 0.9% IV SCH ×3 (05:06→17:49)
[2022-11-30 05:12] LABS: ALANINE AMINOTRANSFERASE,ALT 22 U/L (12-78); ALBUMIN 2.7 g/dL (3.4-5.0); ALKALINE PHOSPHATASE 55 U/L (46-116); ANION GAP 6.5 mmol/L (5.0-14.0); ASPARTATE AMNIOTRANSFERASE,AST 18 U/L (15-37); BILIRUBIN TOTAL 0.5 mg/dL (0.2-1.0); BLOOD UREA NITROGEN,BUN 17 mg/dL (7-18); CALCIUM 8.5 mg/dL (8.5-10.1); CARBON DIOXIDE,CO2 32 mmol/L (21-32); CHLORIDE,CL 104 mmol/L (100-108); CREATININE 0.7 mg/dL (0.6-1.0); EST CRCL DRUG DOSING (CG) 47.58 mL/min; ESTIMATED GFR 88 mL/min (>60); GLUCOSE RANDOM 166 mg/dL (74-106); PHOSPHORUS 3.9 mg/dL (2.5-4.9); POTASSIUM,K 3.9 mmol/L (3.6-5.2); PRO B-TYPE NATRIUR PEPT,BNPPRO 8477 pg/mL (5-450); PROTEIN TOTAL,TP 5.4 g/dL (6.4-8.2); SODIUM,NA 142 mmol/L (140-148)
[2022-11-30] MEDS ORDERED: Haloperidol Lactate 5 MG/ML SDV IVPUSH PRN (08:02)
[2022-11-30 08:13] LABS: BASE EXCESS ARTERIAL 5.6 mm/L; BICARBONATE,ARTERIAL 29.2 mmol/L (22.0-26.0); METHEMOGLOBIN 0.4 %; O2 SATURATION ARTERIAL 92.9 % (95.0-98.0); OXYHEMOGLOBIN 90.7 %; PCO2 ARTERIAL 39.7 mmHg (35.0-42.0); PO2 ARTERIAL 63.1 mmHg (75.0-100.0)
[2022-11-30] MEDS ORDERED: Central Total Parenteral Nutrition Bag SCH (08:15)
[2022-11-30] MEDS: Haloperidol Lactate 5 MG/ML SDV IVPUSH PRN ×4 (09:45→21:30)
[2022-11-30] MEDS: Spironolactone 25 MG Tab PO SCH (09:54)
[2022-11-30] MEDS: Sotalol 80 MG Tab PO SCH ×2 (09:54→20:23)
[2022-11-30] MEDS: 1: AA 5%/Calcium/D15W/Lytes 1,000 ML with MVI, Adult with Vitamin K 10 ML, Zinc/Copper/M IV SCH ×3 (11:51)
[2022-11-30] MEDS ORDERED: Sodium Chloride 0.9% 1,000 ML IV SCH (12:00)
[2022-11-30] MEDS ORDERED: diphenhydrAMINE 50 MG/ML SDV IVPUSH ONE (12:38)
[2022-11-30] MEDS ORDERED: methylPREDNISolone Sodium Succinate 40 MG/1 ML SDV IVPUSH ONE (12:45)
[2022-11-30] MEDS ORDERED: Sodium Chloride 0.9% 10 ML Syringe FLUSH ONE (13:07)
[2022-11-30] MEDS ORDERED: Iopamidol 612 MG/ML 100 ML Bottle IV PRN (13:07)
[2022-11-30] MEDS ORDERED: Sodium Chloride 0.9% 50 ML IV SCH (13:15)
[2022-11-30] MEDS: MEROPENEM IV SCH (14:15)
[2022-11-30] MEDS: STERILE IV SCH (14:15)
[2022-11-30] MEDS: WATER FOR INJECTION IV SCH (14:15)
[2022-11-30] MEDS ORDERED: propofoL 100 ML ONE (14:44)
[2022-11-30] MEDS ORDERED: Propofol 200 MG/20 ML SDV ONE (14:45)
[2022-11-30] MEDS: Heparin Sodium 5,000 UNITS in Sodium Chloride 0.9% 500 ML IV SCH (15:00)
[2022-11-30 15:26] LABS: BASOPHILS PERCENT AUTO 0.1 % (0.1-1.3); HEMATOCRIT 30.4 % (34.3-46.0); HEMOGLOBIN 9.4 g/dL (11.2-15.5); IMMATURE GRAN ABSOLUTE AUTO 0.58 K/uL (0.00-0.23); IMMATURE GRAN PERCENT AUTO 2.2 % (0.0-0.7); LYMPHOCYTES ABSOLUTE AUTO 0.69 K/uL (0.8-3.3); LYMPHOCYTES PERCENT AUTO 2.6 % (11.4-47.7); MEAN CORPUSCULAR HEMOGLOBIN 29.1 pg (31.6-35.5); MEAN CORPUSCULAR HGB CONC 30.9 g/dL (31.6-35.5); MEAN CORPUSCULAR VOLUME 94.1 fL (81.4-99.0); MONOCYTES ABSOLUTE AUTO 1.53 K/uL (0.20-0.90); MONOCYTES PERCENT AUTO 5.8 % (3.3-12.6); NEUTROPHILS ABSOLUTE AUTO 23.38 K/uL (1.0-7.6); NEUTROPHILS PERCENT AUTO 89.3 % (40.0-78.1); PLATELET COUNT,PLT 562 K/uL (130-375); RED BLOOD CELL COUNT 3.23 M/uL (3.77-5.24); WHITE BLOOD CELL COUNT,WBC 26.2 K/uL (3.2-11.0)
[2022-11-30 15:27] LABS: BASOPHILS ABSOLUTE AUTO 0.02 K/uL (0.00-0.10); EOSINOPHILS ABSOLUTE AUTO 0.01 K/uL (0.00-0.40)
[2022-11-30 15:32] LABS: BICARBONATE,ARTERIAL 27.8 mmol/L (22.0-26.0); CARBOXYHEMOGLOBIN 3.2 % (0.0-1.6); METHEMOGLOBIN 0.7 %; O2 SATURATION ARTERIAL 94.8 % (95.0-98.0); OXYHEMOGLOBIN 91.1 %; PCO2 ARTERIAL 52.8 mmHg (35.0-42.0); PO2 ARTERIAL 81.1 mmHg (75.0-100.0); TOTAL HEMOGLOBIN 9.8 g/dL (12.0-16.0)
[2022-11-30 15:41] LABS: ANION GAP 7.1 mmol/L (5.0-14.0); CALCIUM 8.1 mg/dL (8.5-10.1); CREATININE 0.8 mg/dL (0.6-1.0); EST CRCL DRUG DOSING (CG) 41.63 mL/min; POTASSIUM,K 4.5 mmol/L (3.6-5.2)
[2022-11-30] MEDS: Albumin Human 100 ML IV SCH (15:45)
[2022-11-30] MEDS: propofoL 100 ML IV SCH (15:46)
[2022-11-30] MEDS: Pantoprazole 40 MG Vial IVPUSH SCH (15:51)
[2022-11-30 21:59] LABS: BASE EXCESS ARTERIAL 6.6 mm/L; CARBOXYHEMOGLOBIN 2.6 % (0.0-1.6); METHEMOGLOBIN 1.1 %; OXYHEMOGLOBIN 95.8 %; PCO2 ARTERIAL 32.6 mmHg (35.0-42.0); TOTAL HEMOGLOBIN 8.9 g/dL (12.0-16.0)
[2022-11-30 22:00] LABS: O2 SATURATION ARTERIAL > 99.3 % (95.0-98.0)
[2022-12-01] MEDS: propofoL 100 ML IV SCH ×4 (00:04→17:39)
[2022-12-01] MEDS: HYDROmorphone/Normal Saline 6 MG/30 ML PCA Vial IV PRN (00:30)
[2022-12-01] MEDS: SODIUM CHLORIDE 0.9% IV SCH ×2 (00:36→05:12)
[2022-12-01] MEDS: MAGNESIUM SULFATE IV SCH ×2 (00:36→05:12)
[2022-12-01] MEDS: Diltiazem 100 MG in Sodium Chloride 0.9% 100 ML IV SCH ×4 (01:28→21:01)
[2022-12-01] MEDS: Linezolid 600 MG in Premix Bag 1 BAG IV SCH ×2 (01:34→12:57)
[2022-12-01] MEDS: Haloperidol Lactate 5 MG/ML SDV IVPUSH PRN ×2 (01:34→05:10)
[2022-12-01] MEDS: Azithromycin 125 MG in Sodium Chloride 0.9% 100 ML IV SCH ×2 (02:30→14:01)
[2022-12-01] MEDS: WATER FOR INJECTION IV SCH ×2 (02:31→13:43)
[2022-12-01] MEDS: MEROPENEM IV SCH ×2 (02:31→13:43)
[2022-12-01] MEDS: STERILE IV SCH ×2 (02:31→13:43)
[2022-12-01] MEDS: Furosemide 20 MG/2 ML VIAL IVPUSH SCH ×3 (02:32→18:05)
[2022-12-01 04:22] LABS: HEMATOCRIT 26.9 % (34.3-46.0); HEMOGLOBIN 8.6 g/dL (11.2-15.5); MEAN CORPUSCULAR HEMOGLOBIN 29.1 pg (31.6-35.5); MEAN CORPUSCULAR VOLUME 90.9 fL (81.4-99.0); RED BLOOD CELL COUNT 2.96 M/uL (3.77-5.24)
[2022-12-01] MEDS: 1: AA 5%/Calcium/D15W/Lytes 1,000 ML with MVI, Adult with Vitamin K 10 ML, Zinc/Copper/M IV SCH ×6 (04:47→20:59)
[2022-12-01] MEDS: Acetaminophen 500 MG Tab PO SCH (05:00)
[2022-12-01] MEDS: Metoprolol Tartrate 25 MG Tab PO SCH (05:00)
[2022-12-01 05:07] LABS: BASE EXCESS ARTERIAL 7.2 mm/L; BICARBONATE,ARTERIAL 29.9 mmol/L (22.0-26.0); CARBOXYHEMOGLOBIN 2.3 % (0.0-1.6); METHEMOGLOBIN 1.2 %; O2 SATURATION ARTERIAL 98.4 % (95.0-98.0); PCO2 ARTERIAL 34.7 mmHg (35.0-42.0); PO2 ARTERIAL 99.2 mmHg (75.0-100.0); TOTAL HEMOGLOBIN 8.9 g/dL (12.0-16.0)
[2022-12-01 05:10] LABS: ALANINE AMINOTRANSFERASE,ALT 21 U/L (12-78); ALBUMIN 2.9 g/dL (3.4-5.0); ALKALINE PHOSPHATASE 55 U/L (46-116); ANION GAP 10.5 mmol/L (5.0-14.0); ASPARTATE AMNIOTRANSFERASE,AST 14 U/L (15-37); BILIRUBIN TOTAL 0.5 mg/dL (0.2-1.0); BLOOD UREA NITROGEN,BUN 26 mg/dL (7-18); CALCIUM 8.4 mg/dL (8.5-10.1); CARBON DIOXIDE,CO2 31 mmol/L (21-32); CHLORIDE,CL 105 mmol/L (100-108); CREATININE 0.7 mg/dL (0.6-1.0); EST CRCL DRUG DOSING (CG) 47.58 mL/min; ESTIMATED GFR 88 mL/min (>60); GLUCOSE RANDOM 222 mg/dL (74-106); MAGNESIUM 3.1 mg/dL (1.8-2.4); PHOSPHORUS 2.9 mg/dL (2.5-4.9); POTASSIUM,K 3.8 mmol/L (3.6-5.2); PRO B-TYPE NATRIUR PEPT,BNPPRO 7477 pg/mL (5-450); PROTEIN TOTAL,TP 5.7 g/dL (6.4-8.2); SODIUM,NA 146 mmol/L (140-148)
[2022-12-01] MEDS ORDERED: Central Total Parenteral Nutrition Bag SCH (08:15)
[2022-12-01] MEDS: Spironolactone 25 MG Tab PO SCH (10:03)
[2022-12-01] MEDS: Sotalol 80 MG Tab PO SCH (10:03)
[2022-12-01] MEDS: Heparin Sodium 5,000 UNITS in Sodium Chloride 0.9% 500 ML IV SCH (11:11)
[2022-12-01] MEDS: Pantoprazole 40 MG Vial IVPUSH SCH (15:10)
[2022-12-01] MEDS ORDERED: Metoprolol Tartrate 5 MG/5 ML SDV IVPUSH PRN (16:38)
[2022-12-01 16:56] LABS: BICARBONATE,ARTERIAL 29.9 mmol/L (22.0-26.0); CARBOXYHEMOGLOBIN 3.2 % (0.0-1.6); METHEMOGLOBIN 0.7 %; O2 SATURATION ARTERIAL 99.2 % (95.0-98.0); OXYHEMOGLOBIN 95.3 %; TOTAL HEMOGLOBIN 9.6 g/dL (12.0-16.0)
[2022-12-01 17:10] LABS: ANION GAP 8.1 mmol/L (5.0-14.0); CALCIUM 8.6 mg/dL (8.5-10.1); CREATININE 0.6 mg/dL (0.6-1.0); EST CRCL DRUG DOSING (CG) 55.51 mL/min; POTASSIUM,K 4.1 mmol/L (3.6-5.2)
[2022-12-02] MEDS: propofoL 100 ML IV SCH ×4 (00:15→22:11)
[2022-12-02] MEDS: Linezolid 600 MG in Premix Bag 1 BAG IV SCH ×2 (00:18→13:14)
[2022-12-02] MEDS: MEROPENEM IV SCH ×2 (01:21→14:20)
[2022-12-02] MEDS: WATER FOR INJECTION IV SCH ×2 (01:21→14:20)
[2022-12-02] MEDS: STERILE IV SCH ×2 (01:21→14:20)
[2022-12-02] MEDS: Azithromycin 125 MG in Sodium Chloride 0.9% 100 ML IV SCH (01:24)
[2022-12-02] MEDS: Furosemide 20 MG/2 ML VIAL IVPUSH SCH ×3 (02:31→19:28)
[2022-12-02] MEDS: Diltiazem 100 MG in Sodium Chloride 0.9% 100 ML IV SCH ×4 (03:02→22:52)
[2022-12-02 04:29] LABS: BASOPHILS ABSOLUTE AUTO 0.07 K/uL (0.00-0.10); BASOPHILS PERCENT AUTO 0.2 % (0.1-1.3); EOSINOPHILS PERCENT AUTO 0.1 % (0.0-5.4); HEMATOCRIT 28.6 % (34.3-46.0); IMMATURE GRAN PERCENT AUTO 1.8 % (0.0-0.7); LYMPHOCYTES ABSOLUTE AUTO 1.77 K/uL (0.8-3.3); LYMPHOCYTES PERCENT AUTO 5.3 % (11.4-47.7); MEAN CORPUSCULAR HEMOGLOBIN 28.9 pg (31.6-35.5); MEAN CORPUSCULAR HGB CONC 31.5 g/dL (31.6-35.5); MONOCYTES ABSOLUTE AUTO 3.67 K/uL (0.20-0.90); MONOCYTES PERCENT AUTO 10.9 % (3.3-12.6); NEUTROPHILS PERCENT AUTO 81.7 % (40.0-78.1); PLATELET COUNT,PLT 525 K/uL (130-375); RED BLOOD CELL COUNT 3.11 M/uL (3.77-5.24)
[2022-12-02 04:36] LABS: BASE EXCESS ARTERIAL 7.6 mm/L; BICARBONATE,ARTERIAL 30.8 mmol/L (22.0-26.0); CARBOXYHEMOGLOBIN 3.3 % (0.0-1.6); METHEMOGLOBIN 0.6 %; O2 SATURATION ARTERIAL 98.7 % (95.0-98.0); OXYHEMOGLOBIN 94.9 %; PCO2 ARTERIAL 38.2 mmHg (35.0-42.0); TOTAL HEMOGLOBIN 9.3 g/dL (12.0-16.0)
[2022-12-02 04:41] LABS: EOSINOPHILS ABSOLUTE AUTO 0.02 K/uL (0.00-0.40); WHITE BLOOD CELL COUNT,WBC 33.6 K/uL (3.2-11.0)
[2022-12-02 04:58] LABS: A/G RATIO 0.9 (1.2-2.2); ALANINE AMINOTRANSFERASE,ALT 21 U/L (12-78); ALBUMIN 2.5 g/dL (3.4-5.0); ALKALINE PHOSPHATASE 64 U/L (46-116); ANION GAP 9.4 mmol/L (5.0-14.0); ASPARTATE AMNIOTRANSFERASE,AST 20 U/L (15-37); BILIRUBIN TOTAL 0.4 mg/dL (0.2-1.0); BLOOD UREA NITROGEN,BUN 35 mg/dL (7-18); CALCIUM 8.4 mg/dL (8.5-10.1); CARBON DIOXIDE,CO2 30 mmol/L (21-32); CHLORIDE,CL 106 mmol/L (100-108); CREATININE 0.5 mg/dL (0.6-1.0); EST CRCL DRUG DOSING (CG) 66.61 mL/min; ESTIMATED GFR 96 mL/min (>60); GLUCOSE RANDOM 136 mg/dL (74-106); POTASSIUM,K 4.1 mmol/L (3.6-5.2); PRO B-TYPE NATRIUR PEPT,BNPPRO 4732 pg/mL (5-450); PROTEIN TOTAL,TP 5.4 g/dL (6.4-8.2); SODIUM,NA 145 mmol/L (140-148)
[2022-12-02] MEDS ORDERED: Central Total Parenteral Nutrition Bag SCH ×2 (08:00→08:15)
[2022-12-02] MEDS: 1: AA 5%/Calcium/D15W/Lytes 1,000 ML with MVI, Adult with Vitamin K 10 ML, Zinc/Copper/M IV SCH ×3 (14:45)
[2022-12-02] MEDS: Pantoprazole 40 MG Vial IVPUSH SCH (16:00)
[2022-12-02] MEDS ORDERED: Acetaminophen 1,000 MG in Premix Bag 1 BAG IV PRN (16:31)
[2022-12-02] MEDS: metroNIDAZOLE/Normal Saline 500 MG in Premix Bag 1 BAG IV SCH (18:52)
[2022-12-02] MEDS: Cefepime 2 GM in Sodium Chloride 0.9% 50 ML IV SCH (19:46)
[2022-12-02] MEDS: Levofloxacin/Dextrose 5%-Water 750 MG in Premix Bag 1 BAG IV SCH (20:17)
[2022-12-02] MEDS ORDERED: Acetaminophen 650 MG Supp RECTAL PRN (21:21)
[2022-12-02] MEDS: Metoprolol Tartrate 5 MG/5 ML SDV IVPUSH PRN (21:26)
[2022-12-03] MEDS: Linezolid 600 MG in Premix Bag 1 BAG IV SCH ×2 (00:45→13:34)
[2022-12-03] MEDS: metroNIDAZOLE/Normal Saline 500 MG in Premix Bag 1 BAG IV SCH ×3 (01:48→17:55)
[2022-12-03] MEDS: Cefepime 2 GM in Sodium Chloride 0.9% 50 ML IV SCH ×3 (03:15→20:34)
[2022-12-03] MEDS: Furosemide 20 MG/2 ML VIAL IVPUSH SCH ×2 (03:15→14:30)
[2022-12-03 04:31] LABS: BASE EXCESS ARTERIAL 3.4 mm/L; BICARBONATE,ARTERIAL 26.3 mmol/L (22.0-26.0); CARBOXYHEMOGLOBIN 2.2 % (0.0-1.6); METHEMOGLOBIN 1.2 %; O2 SATURATION ARTERIAL 95.2 % (95.0-98.0); PCO2 ARTERIAL 34.1 mmHg (35.0-42.0); PO2 ARTERIAL 73.5 mmHg (75.0-100.0); TOTAL HEMOGLOBIN 9.2 g/dL (12.0-16.0)
[2022-12-03 04:35] LABS: BASOPHILS ABSOLUTE AUTO 0.13 K/uL (0.00-0.10); BASOPHILS PERCENT AUTO 0.2 % (0.1-1.3); EOSINOPHILS ABSOLUTE AUTO 0.06 K/uL (0.00-0.40); EOSINOPHILS PERCENT AUTO 0.1 % (0.0-5.4); HEMATOCRIT 27.2 % (34.3-46.0); HEMOGLOBIN 8.7 g/dL (11.2-15.5); IMMATURE GRAN ABSOLUTE AUTO 1.43 K/uL (0.00-0.23); IMMATURE GRAN PERCENT AUTO 2.7 % (0.0-0.7); LYMPHOCYTES PERCENT AUTO 3.2 % (11.4-47.7); MEAN CORPUSCULAR HEMOGLOBIN 29.3 pg (31.6-35.5); MEAN CORPUSCULAR VOLUME 91.6 fL (81.4-99.0); MONOCYTES ABSOLUTE AUTO 2.72 K/uL (0.20-0.90); MONOCYTES PERCENT AUTO 5.1 % (3.3-12.6); NEUTROPHILS ABSOLUTE AUTO 46.91 K/uL (1.0-7.6); NEUTROPHILS PERCENT AUTO 88.7 % (40.0-78.1); PLATELET COUNT,PLT 443 K/uL (130-375); RED BLOOD CELL COUNT 2.97 M/uL (3.77-5.24)
[2022-12-03 04:58] LABS: A/G RATIO 0.6 (1.2-2.2); ALANINE AMINOTRANSFERASE,ALT 21 U/L (12-78); ALBUMIN 1.9 g/dL (3.4-5.0); ALKALINE PHOSPHATASE 73 U/L (46-116); ANION GAP 8.4 mmol/L (5.0-14.0); ASPARTATE AMNIOTRANSFERASE,AST 20 U/L (15-37); BILIRUBIN TOTAL 0.9 mg/dL (0.2-1.0); BLOOD UREA NITROGEN,BUN 39 mg/dL (7-18); CALCIUM 8.1 mg/dL (8.5-10.1); CARBON DIOXIDE,CO2 27 mmol/L (21-32); CHLORIDE,CL 105 mmol/L (100-108); CREATININE 0.7 mg/dL (0.6-1.0); EST CRCL DRUG DOSING (CG) 47.58 mL/min; ESTIMATED GFR 88 mL/min (>60); GLUCOSE RANDOM 144 mg/dL (74-106); MAGNESIUM 1.7 mg/dL (1.8-2.4); PHOSPHORUS 4.6 mg/dL (2.5-4.9); PRO B-TYPE NATRIUR PEPT,BNPPRO 2485 pg/mL (5-450); SODIUM,NA 140 mmol/L (140-148)
[2022-12-03] MEDS: propofoL 100 ML IV SCH ×2 (04:59→12:59)
[2022-12-03] MEDS: Diltiazem 100 MG in Sodium Chloride 0.9% 100 ML IV SCH ×3 (05:17→19:02)
[2022-12-03] MEDS: 1: AA 5%/Calcium/D15W/Lytes 1,000 ML with MVI, Adult with Vitamin K 10 ML, Zinc/Copper/M IV SCH ×3 (08:20)
[2022-12-03] MEDS: Fluconazole/Normal Saline 400 MG in Premix Bag 1 BAG IV SCH (09:36)
[2022-12-03] MEDS: Metoprolol Tartrate 5 MG/5 ML SDV IVPUSH PRN (10:10)
[2022-12-03] MEDS: Magnesium Sulfate/Water 2 GM in Premix Bag 1 BAG IV SCH ×3 (10:54→22:49)
[2022-12-03] MEDS: Furosemide 40 MG/4 ML VIAL IVPUSH SCH ×2 (11:14→20:18)
[2022-12-03] MEDS: Metoprolol Tartrate 5 MG/5 ML SDV IVPUSH SCH ×3 (12:19→20:26)
[2022-12-03] MEDS ORDERED: Albuterol 0.021% 0.63 MG/3 ML Neb Soln NEB PRN (14:32)
[2022-12-03] MEDS ORDERED: Albuterol 0.083% 2.5 MG/3 ML Neb Soln ONE (14:37)
[2022-12-03] MEDS: HYDROmorphone/Normal Saline 6 MG/30 ML PCA Vial IV PRN (15:08)
[2022-12-03] MEDS: Pantoprazole 40 MG Vial IVPUSH SCH (17:20)
[2022-12-03] MEDS: Levofloxacin/Dextrose 5%-Water 750 MG in Premix Bag 1 BAG IV SCH (19:06)
[2022-12-03] MEDS ORDERED: Magnesium Hydroxide 400 MG/5 ML Susp 30 ML Cup PO ONE (21:00)
[2022-12-03] MEDS: Heparin Sodium 5,000 UNITS in Sodium Chloride 0.9% 500 ML IV SCH (21:37)
[2022-12-03] MEDS ORDERED: Magnesium Hydroxide 400 MG/5 ML Susp 30 ML Cup PO PRN (22:00)
[2022-12-04] MEDS: Metoprolol Tartrate 5 MG/5 ML SDV IVPUSH SCH ×7 (01:07→21:29)
[2022-12-04] MEDS: Linezolid 600 MG in Premix Bag 1 BAG IV SCH ×2 (01:16→12:51)
[2022-12-04] MEDS: 1: AA 5%/Calcium/D15W/Lytes 1,000 ML with MVI, Adult with Vitamin K 10 ML, Zinc/Copper/M IV SCH ×6 (01:25→18:03)
[2022-12-04] MEDS: Diltiazem 100 MG in Sodium Chloride 0.9% 100 ML IV SCH ×3 (01:48→15:57)
[2022-12-04] MEDS: metroNIDAZOLE/Normal Saline 500 MG in Premix Bag 1 BAG IV SCH ×3 (02:25→16:59)
[2022-12-04] MEDS: Furosemide 40 MG/4 ML VIAL IVPUSH SCH ×2 (03:30→14:31)
[2022-12-04] MEDS: Cefepime 2 GM in Sodium Chloride 0.9% 50 ML IV SCH ×3 (03:44→19:13)
[2022-12-04] MEDS: Magnesium Sulfate/Water 2 GM in Premix Bag 1 BAG IV SCH ×4 (03:59→21:37)
[2022-12-04 04:47] LABS: BASE EXCESS ARTERIAL -0.2 mm/L; BICARBONATE,ARTERIAL 24.1 mmol/L (22.0-26.0); CARBOXYHEMOGLOBIN 2.5 % (0.0-1.6); METHEMOGLOBIN 1.4 %; O2 SATURATION ARTERIAL 95.6 % (95.0-98.0); OXYHEMOGLOBIN 91.9 %; PCO2 ARTERIAL 40.6 mmHg (35.0-42.0); PO2 ARTERIAL 79.7 mmHg (75.0-100.0); TOTAL HEMOGLOBIN 9.1 g/dL (12.0-16.0)
[2022-12-04 04:48] LABS: BASOPHILS ABSOLUTE AUTO 0.15 K/uL (0.00-0.10); BASOPHILS PERCENT AUTO 0.3 % (0.1-1.3); EOSINOPHILS ABSOLUTE AUTO 0.07 K/uL (0.00-0.40); EOSINOPHILS PERCENT AUTO 0.1 % (0.0-5.4); HEMATOCRIT 27.6 % (34.3-46.0); HEMOGLOBIN 8.6 g/dL (11.2-15.5); IMMATURE GRAN ABSOLUTE AUTO 2.06 K/uL (0.00-0.23); IMMATURE GRAN PERCENT AUTO 3.8 % (0.0-0.7); LYMPHOCYTES ABSOLUTE AUTO 0.89 K/uL (0.8-3.3); LYMPHOCYTES PERCENT AUTO 1.6 % (11.4-47.7); MEAN CORPUSCULAR HEMOGLOBIN 29.5 pg (31.6-35.5); MEAN CORPUSCULAR HGB CONC 31.2 g/dL (31.6-35.5); MEAN CORPUSCULAR VOLUME 94.5 fL (81.4-99.0); MONOCYTES ABSOLUTE AUTO 1.57 K/uL (0.20-0.90); MONOCYTES PERCENT AUTO 2.9 % (3.3-12.6); NEUTROPHILS ABSOLUTE AUTO 50.19 K/uL (1.0-7.6); NEUTROPHILS PERCENT AUTO 91.3 % (40.0-78.1); PLATELET COUNT,PLT 392 K/uL (130-375); RED BLOOD CELL COUNT 2.92 M/uL (3.77-5.24)
[2022-12-04] MEDS: propofoL 100 ML IV SCH ×3 (05:03→19:30)
[2022-12-04 05:18] LABS: A/G RATIO 0.4 (1.2-2.2); ALANINE AMINOTRANSFERASE,ALT 17 U/L (12-78); ALBUMIN 1.5 g/dL (3.4-5.0); ALKALINE PHOSPHATASE 81 U/L (46-116); ASPARTATE AMNIOTRANSFERASE,AST 17 U/L (15-37); BILIRUBIN TOTAL 0.5 mg/dL (0.2-1.0); BLOOD UREA NITROGEN,BUN 49 mg/dL (7-18); CARBON DIOXIDE,CO2 26 mmol/L (21-32); CHLORIDE,CL 106 mmol/L (100-108); CREATININE 0.7 mg/dL (0.6-1.0); EST CRCL DRUG DOSING (CG) 47.58 mL/min; ESTIMATED GFR 88 mL/min (>60); GLUCOSE RANDOM 183 mg/dL (74-106); MAGNESIUM 3.2 mg/dL (1.8-2.4); PHOSPHORUS 4.3 mg/dL (2.5-4.9); POTASSIUM,K 4.4 mmol/L (3.6-5.2); PRO B-TYPE NATRIUR PEPT,BNPPRO 2554 pg/mL (5-450); PROTEIN TOTAL,TP 5.2 g/dL (6.4-8.2); SODIUM,NA 139 mmol/L (140-148)
[2022-12-04 05:19] LABS: WHITE BLOOD CELL COUNT,WBC 54.9 K/uL (3.2-11.0)
[2022-12-04 05:22] LABS: ANION GAP 11.4 mmol/L (5.0-14.0)
[2022-12-04] MEDS: Fluconazole/Normal Saline 400 MG in Premix Bag 1 BAG IV SCH (08:03)
[2022-12-04] MEDS: Heparin Sodium 5,000 UNITS in Sodium Chloride 0.9% 500 ML IV SCH (12:00)
[2022-12-04] MEDS ORDERED: Bumetanide 1 MG/4 ML MDV IVPUSH SCH (14:00)
[2022-12-04] MEDS: Bumetanide 2.5 MG/10 ML MDV IVPUSH SCH ×2 (14:36→21:39)
[2022-12-04] MEDS: Pantoprazole 40 MG Vial IVPUSH SCH (16:47)
[2022-12-04] MEDS: Levofloxacin/Dextrose 5%-Water 750 MG in Premix Bag 1 BAG IV SCH (18:04)
[2022-12-05] MEDS: Linezolid 600 MG in Premix Bag 1 BAG IV SCH ×2 (00:19→12:40)
[2022-12-05] MEDS: Diltiazem 100 MG in Sodium Chloride 0.9% 100 ML IV SCH ×3 (01:28→21:31)
[2022-12-05] MEDS: Metoprolol Tartrate 5 MG/5 ML SDV IVPUSH SCH ×6 (01:38→22:00)
[2022-12-05] MEDS: metroNIDAZOLE/Normal Saline 500 MG in Premix Bag 1 BAG IV SCH ×3 (01:44→17:39)
[2022-12-05] MEDS: Magnesium Sulfate/Water 2 GM in Premix Bag 1 BAG IV SCH (03:08)
[2022-12-05] MEDS: Cefepime 2 GM in Sodium Chloride 0.9% 50 ML IV SCH ×3 (03:08→21:20)
[2022-12-05] MEDS: propofoL 100 ML IV SCH ×3 (04:21→23:01)
[2022-12-05 04:46] LABS: BASOPHILS ABSOLUTE AUTO 0.11 K/uL (0.00-0.10); BASOPHILS PERCENT AUTO 0.3 % (0.1-1.3); EOSINOPHILS ABSOLUTE AUTO 0.06 K/uL (0.00-0.40); EOSINOPHILS PERCENT AUTO 0.1 % (0.0-5.4); HEMATOCRIT 26.4 % (34.3-46.0); HEMOGLOBIN 8.2 g/dL (11.2-15.5); IMMATURE GRAN ABSOLUTE AUTO 1.48 K/uL (0.00-0.23); IMMATURE GRAN PERCENT AUTO 3.5 % (0.0-0.7); LYMPHOCYTES PERCENT AUTO 1.6 % (11.4-47.7); MEAN CORPUSCULAR HEMOGLOBIN 29.3 pg (31.6-35.5); MEAN CORPUSCULAR HGB CONC 31.1 g/dL (31.6-35.5); MEAN CORPUSCULAR VOLUME 94.3 fL (81.4-99.0); MONOCYTES ABSOLUTE AUTO 1.89 K/uL (0.20-0.90); MONOCYTES PERCENT AUTO 4.4 % (3.3-12.6); NEUTROPHILS ABSOLUTE AUTO 38.42 K/uL (1.0-7.6); NEUTROPHILS PERCENT AUTO 90.1 % (40.0-78.1); PLATELET COUNT,PLT 351 K/uL (130-375)
[2022-12-05 04:47] LABS: BASE EXCESS ARTERIAL -2.9 mm/L; BICARBONATE,ARTERIAL 21.8 mmol/L (22.0-26.0); CARBOXYHEMOGLOBIN 2.7 % (0.0-1.6); METHEMOGLOBIN 0.6 %; O2 SATURATION ARTERIAL 98.3 % (95.0-98.0); OXYHEMOGLOBIN 95.1 %; PCO2 ARTERIAL 39.6 mmHg (35.0-42.0); TOTAL HEMOGLOBIN 8.4 g/dL (12.0-16.0)
[2022-12-05 04:54] LABS: WHITE BLOOD CELL COUNT,WBC 42.7 K/uL (3.2-11.0)
[2022-12-05 05:23] LABS: A/G RATIO 0.3 (1.2-2.2); ALANINE AMINOTRANSFERASE,ALT 12 U/L (12-78); ALBUMIN 1.3 g/dL (3.4-5.0); ALKALINE PHOSPHATASE 98 U/L (46-116); ASPARTATE AMNIOTRANSFERASE,AST 26 U/L (15-37); BILIRUBIN TOTAL 0.4 mg/dL (0.2-1.0); BLOOD UREA NITROGEN,BUN 66 mg/dL (7-18); CALCIUM 8.3 mg/dL (8.5-10.1); CARBON DIOXIDE,CO2 23 mmol/L (21-32); CHLORIDE,CL 106 mmol/L (100-108); CREATININE 0.8 mg/dL (0.6-1.0); EST CRCL DRUG DOSING (CG) 41.63 mL/min; ESTIMATED GFR 75 mL/min (>60); GLUCOSE RANDOM 190 mg/dL (74-106); PHOSPHORUS 4.5 mg/dL (2.5-4.9); PRO B-TYPE NATRIUR PEPT,BNPPRO 2325 pg/mL (5-450); PROTEIN TOTAL,TP 5.1 g/dL (6.4-8.2); SODIUM,NA 137 mmol/L (140-148)
[2022-12-05] MEDS: Bumetanide 2.5 MG/10 ML MDV IVPUSH SCH (05:31)
[2022-12-05] MEDS ORDERED: Central Total Parenteral Nutrition Bag SCH (07:45)
[2022-12-05] MEDS: Fluconazole/Normal Saline 400 MG in Premix Bag 1 BAG IV SCH (09:32)
[2022-12-05] MEDS: 1: AA 5%/Calcium/D15W/Lytes 1,000 ML with MVI, Adult with Vitamin K 10 ML, Zinc/Copper/M IV SCH ×3 (09:55)
[2022-12-05] MEDS: Bumetanide 0.5 MG, Bumetanide 2.5 MG IVPUSH SCH ×4 (13:28→22:31)
[2022-12-05] MEDS ORDERED: Bumetanide 2.5 MG/10 ML MDV IVPUSH SCH (14:00)
[2022-12-05] MEDS: Pantoprazole 40 MG Vial IVPUSH SCH (16:02)
[2022-12-05] MEDS: Levofloxacin/Dextrose 5%-Water 750 MG in Premix Bag 1 BAG IV SCH (19:45)
[2022-12-06] MEDS: Linezolid 600 MG in Premix Bag 1 BAG IV SCH (00:10)
[2022-12-06] MEDS: metroNIDAZOLE/Normal Saline 500 MG in Premix Bag 1 BAG IV SCH ×2 (01:28→09:34)
[2022-12-06] MEDS: 1: AA 5%/Calcium/D15W/Lytes 1,000 ML with MVI, Adult with Vitamin K 10 ML, Zinc/Copper/M IV SCH ×3 (01:46)
[2022-12-06] MEDS: Norepinephrine Bit/D5W Premix 4 MG in Premix Bag 1 BAG IV SCH ×2 (01:52→13:17)
[2022-12-06] MEDS: Cefepime 2 GM in Sodium Chloride 0.9% 50 ML IV SCH ×2 (02:34→10:18)
[2022-12-06] MEDS: Metoprolol Tartrate 5 MG/5 ML SDV IVPUSH SCH ×4 (02:38→14:38)
[2022-12-06] MEDS: propofoL 100 ML IV SCH ×2 (04:58→15:14)
[2022-12-06 04:59] LABS: BASE EXCESS ARTERIAL -7.5 mm/L; BICARBONATE,ARTERIAL 18.9 mmol/L (22.0-26.0); CARBOXYHEMOGLOBIN 2.6 % (0.0-1.6); METHEMOGLOBIN 1.2 %; O2 SATURATION ARTERIAL 95.1 % (95.0-98.0); OXYHEMOGLOBIN 91.5 %; PCO2 ARTERIAL 45.5 mmHg (35.0-42.0); PO2 ARTERIAL 83.6 mmHg (75.0-100.0); TOTAL HEMOGLOBIN 8.4 g/dL (12.0-16.0)
[2022-12-06 05:02] LABS: BASOPHILS ABSOLUTE AUTO 0.11 K/uL (0.00-0.10); BASOPHILS PERCENT AUTO 0.3 % (0.1-1.3); EOSINOPHILS PERCENT AUTO 0.1 % (0.0-5.4); HEMATOCRIT 26.5 % (34.3-46.0); HEMOGLOBIN 7.9 g/dL (11.2-15.5); IMMATURE GRAN ABSOLUTE AUTO 1.81 K/uL (0.00-0.23); LYMPHOCYTES ABSOLUTE AUTO 0.83 K/uL (0.8-3.3); LYMPHOCYTES PERCENT AUTO 2.3 % (11.4-47.7); MEAN CORPUSCULAR HEMOGLOBIN 28.7 pg (31.6-35.5); MEAN CORPUSCULAR HGB CONC 29.8 g/dL (31.6-35.5); MEAN CORPUSCULAR VOLUME 96.4 fL (81.4-99.0); MONOCYTES ABSOLUTE AUTO 2.42 K/uL (0.20-0.90); MONOCYTES PERCENT AUTO 6.7 % (3.3-12.6); NEUTROPHILS ABSOLUTE AUTO 31.13 K/uL (1.0-7.6); NEUTROPHILS PERCENT AUTO 85.6 % (40.0-78.1); PLATELET COUNT,PLT 345 K/uL (130-375); RED BLOOD CELL COUNT 2.75 M/uL (3.77-5.24)
[2022-12-06 05:22] LABS: EOSINOPHILS ABSOLUTE AUTO 0.02 K/uL (0.00-0.40); WHITE BLOOD CELL COUNT,WBC 36.3 K/uL (3.2-11.0)
[2022-12-06 05:29] LABS: A/G RATIO 0.3 (1.2-2.2); ALANINE AMINOTRANSFERASE,ALT 21 U/L (12-78); ALBUMIN 1.2 g/dL (3.4-5.0); ALKALINE PHOSPHATASE 109 U/L (46-116); ASPARTATE AMNIOTRANSFERASE,AST 49 U/L (15-37); BILIRUBIN TOTAL 0.4 mg/dL (0.2-1.0); CALCIUM 8.5 mg/dL (8.5-10.1); CARBON DIOXIDE,CO2 22 mmol/L (21-32); CHLORIDE,CL 103 mmol/L (100-108); CREATININE 1.1 mg/dL (0.6-1.0); EST CRCL DRUG DOSING (CG) 30.28 mL/min; ESTIMATED GFR 51 mL/min (>60); GLUCOSE RANDOM 190 mg/dL (74-106); PHOSPHORUS 5.9 mg/dL (2.5-4.9); PRO B-TYPE NATRIUR PEPT,BNPPRO 2848 pg/mL (5-450); PROTEIN TOTAL,TP 5.1 g/dL (6.4-8.2); SODIUM,NA 133 mmol/L (140-148)
[2022-12-06 05:36] LABS: BLOOD UREA NITROGEN,BUN 94 mg/dL (7-18)
[2022-12-06] MEDS: Diltiazem 100 MG in Sodium Chloride 0.9% 100 ML IV SCH ×2 (06:12→12:55)
[2022-12-06] MEDS: Bumetanide 0.5 MG, Bumetanide 2.5 MG IVPUSH SCH ×2 (06:52)
[2022-12-06] MEDS ORDERED: Central Total Parenteral Nutrition Bag SCH (08:00)
[2022-12-06] MEDS: Fluconazole/Normal Saline 400 MG in Premix Bag 1 BAG IV SCH (08:03)
[2022-12-06] MEDS ORDERED: Albumin Human 25 GM in Premix Bag 1 BAG IV SCH (09:00)
[2022-12-06 14:32] VITALS: PULSE 71
[2022-12-06] MEDS: Heparin Sodium 5,000 UNITS in Sodium Chloride 0.9% 500 ML IV SCH (15:24)
[2022-12-06 15:25] LABS: CREATININE 1.5 mg/dL (0.6-1.0); EST CRCL DRUG DOSING (CG) 22.2 mL/min
[2022-12-06 15:29] LABS: ANION GAP 16.7 mmol/L (5.0-14.0); POTASSIUM,K 7.7 mmol/L (3.6-5.2)
[2022-12-06] MEDS ORDERED: Calcium Gluconate 10% 1 GM/10 ML SDV IVPUSH ONE (15:45)
[2022-12-06 16:08] VITALS: BP 96/29
[2022-12-06] MEDS ORDERED: Cefepime 2 GM in Water For Injection, Sterile 20 ML IV SCH (19:00)
== END 2022-12-06 17:15 | disposition expired | DRG 799 ==
LOC: JP.ED 09:07 → JP.ACU 12:00 → JP.ICU 14:30 → UNDOADMIN 14:30 → JP.ICU 15:06 → UNDODISIN 12-06 17:15
PROVIDERS: ADMIT Surgery; ATTEND Surgery
PROC: 0WQF0ZZ Repair Abdominal Wall, Open Approach (ICD-10-PCS; 2022-11-22)
PROC: 07TP0ZZ Resection of Spleen, Open Approach (ICD-10-PCS; principal; 2022-11-22 11:30)
PROC: 0DT80ZZ Resection of Small Intestine, Open Approach (ICD-10-PCS; 2022-11-25)
PROC: 0WQF0ZZ Repair Abdominal Wall, Open Approach (ICD-10-PCS; 2022-11-25)
PROC: 0TBB0ZZ Excision of Bladder, Open Approach (ICD-10-PCS; 2022-11-25)
PROC: 0JB80ZZ Excision of Abdomen Subcutaneous Tissue and Fascia, Open Approach (ICD-10-PCS; 2022-11-25)
PROC: 0JQ80ZZ Repair Abdomen Subcutaneous Tissue and Fascia, Open Approach (ICD-10-PCS; 2022-11-28)
PROC: 0JB80ZZ Excision of Abdomen Subcutaneous Tissue and Fascia, Open Approach (ICD-10-PCS; 2022-11-28)
PROC: 5A09357 Assistance with Respiratory Ventilation, Less than 24 Consecutive Hours, Continuous Positive Airway Pressure (ICD-10-PCS; 2022-11-29)
PROC: 5A1955Z Respiratory Ventilation, Greater than 96 Consecutive Hours (ICD-10-PCS; 2022-11-30)
PROC: 0BH17EZ Insertion of Endotracheal Airway into Trachea, Via Natural or Artificial Opening (ICD-10-PCS; 2022-11-30)
PROC: 03HY32Z Insertion of Monitoring Device into Upper Artery, Percutaneous Approach (ICD-10-PCS; 2022-11-30)
PROC: 4A133B1 Monitoring of Arterial Pressure, Peripheral, Percutaneous Approach (ICD-10-PCS; 2022-11-30)
PROC: 4A133J1 Monitoring of Arterial Pulse, Peripheral, Percutaneous Approach (ICD-10-PCS; 2022-11-30)
PROC: 3E033XZ Introduction of Vasopressor into Peripheral Vein, Percutaneous Approach (ICD-10-PCS; 2022-11-30)
PROC: 05H633Z Insertion of Infusion Device into Left Subclavian Vein, Percutaneous Approach (ICD-10-PCS; 2022-12-02)
PROC: 3E0336Z Introduction of Nutritional Substance into Peripheral Vein, Percutaneous Approach (ICD-10-PCS; 2022-12-02)
PROC: 30233K1 Transfusion of Nonautologous Frozen Plasma into Peripheral Vein, Percutaneous Approach (ICD-10-PCS; 2022-12-06)
PROC: 30233N1 Transfusion of Nonautologous Red Blood Cells into Peripheral Vein, Percutaneous Approach (ICD-10-PCS; 2022-12-06)
DX: D73.5 Infarction of spleen (principal); A41.9 Sepsis, unspecified organism; J18.9 Pneumonia, unspecified organism; Z20.822 Contact with and (suspected) exposure to COVID-19; K66.1 Hemoperitoneum; R65.21 Severe sepsis with septic shock; I48.91 Unspecified atrial fibrillation; J80 Acute respiratory distress syndrome; M72.6 Necrotizing fasciitis; Z86.12 Personal history of poliomyelitis; D62 Acute posthemorrhagic anemia; I48.20 Chronic atrial fibrillation, unspecified; K43.0 Incisional hernia with obstruction, without gangrene; Z66 Do not resuscitate; J90 Pleural effusion, not elsewhere classified; T85.79XA Infection and inflammatory reaction due to other internal prosthetic devices, implants and grafts, initial encounter; K43.9 Ventral hernia without obstruction or gangrene; I10 Essential (primary) hypertension; F41.9 Anxiety disorder, unspecified; E86.1 Hypovolemia; E78.00 Pure hypercholesterolemia, unspecified; F32.A Depression, unspecified; H54.7 Unspecified visual loss; E83.51 Hypocalcemia; R57.8 Other shock; J98.2 Interstitial emphysema; Z78.1 Physical restraint status; Z98.890 Other specified postprocedural states; Z79.01 Long term (current) use of anticoagulants; Z79.899 Other long term (current) drug therapy; Z11.52 Encounter for screening for COVID-19; Z88.8 Allergy status to other drugs, medicaments and biological substances; Z88.0 Allergy status to penicillin; Z88.2 Allergy status to sulfonamides; Z91.041 Radiographic dye allergy status; Z87.440 Personal history of urinary (tract) infections; Z87.81 Personal history of (healed) traumatic fracture; Z90.49 Acquired absence of other specified parts of digestive tract; Z87.19 Personal history of other diseases of the digestive system; Z90.710 Acquired absence of both cervix and uterus; Z90.722 Acquired absence of ovaries, bilateral; Z87.01 Personal history of pneumonia (recurrent); Z87.891 Personal history of nicotine dependence; Y83.8 Other surgical procedures as the cause of abnormal reaction of the patient, or of later complication, without mention of misadventure at the time of the procedure; Y92.89 Other specified places as the place of occurrence of the external cause
CPT/HCPCS: 36415; 36430; 36600; 51702; 71045; 71045-26; 71275; 71275-26; 74176; 74176-26; 74177; 74177-26; 80048; 80053; 82150; 82803; 83605; 83735; 83880; 84100; 84145; 84484; 85018; 85025; 85027; 85610; 85730; 86140; 86850; 86900; 86901; 86920; 86922; 87040; 87070; 87077; 87102; 87205; 88302; 88304; 88305; 88307; 93306; 94002; 94003; 94640; 94660; 96361; 96365; 96374; 96375; 99285; 99285-25; A9270-GY; C1751; C9113; J0131; J0171; J0330; J0456; J0612; J0692; J1100; J1170; J1200; J1450; J1630; J1642; J1644; J1790; J1940; J1956; J2020; J2060; J2185; J2371; J2405; J2704; J2710; J2795; J2920; J3010; J3410; J3411; J3475; J3480; J3490; J7040; J7120; J7121; P9016; P9017; P9047; Q9967; U0002